=== PATIENT | male | born 1965 | race Caucasian/White ===

== ENCOUNTER → 2017-12-14 17:02 | Outpatient (CLI) | payer BC, SELFPAY ==
[2017-12-14 19:08] LABS: Thyroid Stimulating Hormone 2.52 uIU/mL (0.47-4.68)
== END ==
PROVIDERS: PCP Internal Medicine; Visit Provider Internal Medicine
DX: R53.83 Other fatigue (principal)
CPT/HCPCS: 36415; 84443

== ENCOUNTER → 2018-05-10 09:50 | Outpatient (CLI) | payer BC, SELFPAY ==
--- NOTE | 2018-05-10 | DI.US.S_ITS ---
PROCEDURE: US PERIPH VENOUS LOW EXTREM BI INDICATIONS: BILAT LEG PAIN TECHNIQUE: Real-time imaging, as well as color and pulse Doppler interrogation, were performed of the deep veins of both legs from the inguinal ligament to the popliteal fossa. COMPARISON: [facility], , PVE UNILATERAL LEFT, 09/21/2017, 15:37. FINDINGS: The deep veins are normally compressible, and free of intraluminal thrombus. Color and pulse Doppler demonstrate normal phasic intravascular flow. There is normal augmentation response to distal compression maneuver. IMPRESSION: Negative for deep venous thrombosis. Note: Concordant preliminary findings given by the oral health therapist upon the completion of the examination to medical insurance collector Samira Gayle. Dictated by: Jett Buckner M.D. on 05/10/2018 at 10:08 Approved by: Jett Buckner M.D. on 05/10/2018 at 10:09
== END ==
PROVIDERS: Family Provider Internal Medicine; PCP Internal Medicine; Visit Provider Internal Medicine
DX: M79.606 Pain in leg, unspecified (principal)
CPT/HCPCS: 93970

== ENCOUNTER → 2018-06-26 10:10 | Outpatient (CLI) | payer BC, SELFPAY ==
[2018-06-26 12:41] LABS: Thyroid Stimulating Hormone 2.48 uIU/mL (0.47-4.68)
== END ==
PROVIDERS: PCP Internal Medicine; Visit Provider Internal Medicine
DX: E03.9 Hypothyroidism, unspecified (principal); Z12.5 Encounter for screening for malignant neoplasm of prostate
CPT/HCPCS: 36415; 84153; 84443

== ENCOUNTER → 2018-11-28 09:14 | Outpatient (CLI) | payer BC, SELFPAY ==
[2018-11-28 11:53] LABS: TSH w/ Reflex to FT4 1.64 uIU/mL (0.47-4.68)
== END ==
PROVIDERS: PCP Internal Medicine; Visit Provider Internal Medicine
DX: E03.9 Hypothyroidism, unspecified (principal)
CPT/HCPCS: 36415; 84443

== ENCOUNTER → 2019-06-11 13:24 | Outpatient (ROUT) | payer BC, SELFPAY ==
[2019-06-11 14:17] LABS: BUN Creatinine Ratio 21.1 (6-22); Blood Urea Nitrogen 19 mg/dL (9-20); Calcium 10.2 mg/dL (8.4-10.2); Carbon Dioxide 29 mmol/L (22-32); Chloride 104 mmol/L (98-107); Cholesterol 204 mg/dL (140-199); Estimated Glomerular Filt Rate > 60.0 mL/min (>60); Glucose 95 mg/dL (70-100); HDL Cholesterol 53 mg/dL (40-60); HEMOLYSIS < 15 (0-50); LDL Cholesterol Calculated 122 mg/dL (<100); Potassium 4.4 mmol/L (3.4-5.1); Sodium 142 mmol/L (137-145); Triglycerides 145 mg/dL (35-150)
[2019-06-11 14:46] LABS: TSH w/ Reflex to FT4 1.46 uIU/mL (0.47-4.68)
== END ==
PROVIDERS: PCP Internal Medicine; Visit Provider Internal Medicine
DX: Z13.1 Encounter for screening for diabetes mellitus (principal); E78.5 Hyperlipidemia, unspecified; E03.9 Hypothyroidism, unspecified
CPT/HCPCS: 80048; 80061; 84443

== ENCOUNTER → 2020-04-11 14:44 | Outpatient (CLI) | payer OTHER, SELFPAY ==
[2020-04-12 14:43] LABS: COVID19 Sendout Not Detected (Not Detect)
== END ==
PROVIDERS: PCP Internal Medicine; Visit Provider Physician Assistant
DX: Z11.59 Encounter for screening for other viral diseases (principal)
CPT/HCPCS: 87635

== ENCOUNTER → 2020-06-16 17:11 | Outpatient (CLI) | payer OTHER, MEDICAID, SELFPAY ==
[2020-06-16 17:32] LABS: Hematocrit 43.3 % (41-53); Hemoglobin 14.7 g/dL (13.5-17.5); Mean Corpuscular Hemoglobin 31.1 PG (26-34); Mean Corpuscular Volume 91.3 fL (80-100); Platelet Count 210 X10^3/uL (150-400); Red Blood Cell Count 4.74 X10^6/uL (4.5-5.9); Red Cell Distribution Width 13.2 % (11.6-14.8); White Blood Cell Count 5.4 X10^3/uL (4.5-11.0)
[2020-06-16 17:37] LABS: Monotest Negative (Negative)
[2020-06-16 17:42] LABS: Alanine Aminotransferase 46 IU/L (<50); Albumin 4.7 g/dL (3.5-5.0); Albumin Globulin Ratio 1.6 (1.0-2.8); Alkaline Phosphatase 72 U/L (38-126); Aspartate Aminotransferase 39 IU/L (17-59); Bilirubin Total 0.4 mg/dL (0.2-1.3); Blood Urea Nitrogen 27 mg/dL (9-20); Calcium 9.7 mg/dL (8.4-10.2); Carbon Dioxide 28 mmol/L (22-32); Chloride 106 mmol/L (98-107); Estimated Glomerular Filt Rate > 60.0 mL/min (>60); Glucose 97 mg/dL (70-100); HEMOLYSIS < 15 (0-50); Potassium 4.3 mmol/L (3.4-5.1); Sodium 139 mmol/L (137-145); Total Protein 7.7 g/dL (6.3-8.2)
[2020-06-16 17:48] LABS: Hypersegmented Neutrophils 2+; Neutrophils Absolute Manual 3186 /uL (3000-5900); RBC Morphology Normal Morphology; Total Cells Counted 100
[2020-06-16 18:10] LABS: Free T3, Triiodothyronine Free 3.29 pg/mL (2.77-5.27); Free T4, Direct Thyroxine 1.13 ng/dL (0.78-2.19)
[2020-06-16 18:11] LABS: Vitamin D 25 Hydroxy (D3) 31.2 ng/mL (30.0-100.0)
[2020-06-16 18:12] LABS: Prostate Specific Antigen Scrn 1.35 ng/mL (0.1-4.0)
[2020-06-16 18:24] LABS: Thyroid Stimulating Hormone 1.62 uIU/mL (0.47-4.68)
[2020-06-16 18:30] LABS: Vitamin B12 291 pg/mL (239-931)
== END ==
PROVIDERS: PCP Student in an Organized Health Care Education/Training Program; Referring Provider Student in an Organized Health Care Education/Training Program; Visit Provider Student in an Organized Health Care Education/Training Program
DX: E03.9 Hypothyroidism, unspecified (principal); K21.9 Gastro-esophageal reflux disease without esophagitis; K92.1 Melena; R53.83 Other fatigue; Z12.5 Encounter for screening for malignant neoplasm of prostate
CPT/HCPCS: 36415; 80053; 82306; 82607; 84439; 84443; 84481; 85025; 86318; G0103

== ENCOUNTER → 2020-06-22 08:34 | Outpatient (CLI) | payer OTHER, MEDICAID, SELFPAY ==
[2020-06-22 08:39] LABS: RBC Urine None Seen (0-5/HPF); WBC Urine None Seen (0-5/HPF)
[2020-06-22 09:03] LABS: Occult Blood 1 Negative (Negative)
[2020-06-22 09:09] LABS: Appearance Urine UA CLEAR; Bilirubin Urine UA NEGATIVE (NEGATIVE); Color Urine UA YELLOW; Glucose Urine UA NEGATIVE (Negative); Ketones Urine UA NEGATIVE (NEGATIVE); Leukocyte Esterase Urine UA NEGATIVE (NEGATIVE); Nitrite Urine UA NEGATIVE (Negative); Occult Blood Urine UA NEGATIVE (Negative); Protein Urine UA NEGATIVE (Negative); Specific Gravity Urine UA >=1.030 (1.000-1.035); Urobilinogen Urine UA 0.2 E.U./dL (0.2)
[2020-06-22 09:20] LABS: Bacteria Urine Occasional (0-1); Calcium Oxalate Crystals Urine Many; Culture Indicated Urine Cult Not Indicated
[2020-06-24 07:09] LABS: H. Pylori Antigen Stool Negative (Negative)
== END ==
PROVIDERS: PCP Student in an Organized Health Care Education/Training Program; Referring Provider Student in an Organized Health Care Education/Training Program; Visit Provider Student in an Organized Health Care Education/Training Program
DX: E03.9 Hypothyroidism, unspecified (principal); K21.9 Gastro-esophageal reflux disease without esophagitis; K92.1 Melena; R53.83 Other fatigue
CPT/HCPCS: 81001; 82270; 87338

== ENCOUNTER → 2020-07-19 11:44 | Outpatient (CLI) | payer OTHER, MEDICAID, SELFPAY ==
[2020-07-19 14:15] LABS: Free T4, Direct Thyroxine 0.74 ng/dL (0.78-2.19)
== END ==
PROVIDERS: PCP Student in an Organized Health Care Education/Training Program; Referring Provider Student in an Organized Health Care Education/Training Program; Visit Provider Student in an Organized Health Care Education/Training Program
DX: E03.9 Hypothyroidism, unspecified (principal)
CPT/HCPCS: 36415; 84439; 84443

== ENCOUNTER 2020-07-25 15:52 | Emergency (ER) | payer OTHER, MEDICAID, SELFPAY ==
[2020-07-25 16:11] VITALS: BP 174/99; PULSE 58; RESP 20; TEMP 36.8; O2SAT 98; BMI 30.9
--- NOTE | 2020-07-25 16:14 | ED_ITS ---
HPI - Back Pain/Injury General Chief Complaint: Back Pain/Injury Stated Complaint: back/leg pain right side Time Seen by Provider: 07/25/20 16:00 Source: patient and family Mode of arrival: Ambulatory Limitations: no limitations History of Present Illness HPI Narrative: 54-year-old male nonsmoker with history of hypothyroidism presents with his in the chief complaint of severe right lower back pain that radiates into his right leg. He states that it started a few days ago when he was lifting some objects at home. It has been progressively worsening since and now he has intense pain when trying to move or walk. As stated, the pain starts in his lower back and radiates down the outside of his right leg to his knee. He denies any numbness, tingling or weakness. He denies any trouble controlling bowel or bladder. He denies any traumatic injury. He denies use of blood thinners or IV drugs. He has had no footdrop. He is otherwise well and free of complaint MD Complaint: back pain Onset (ago): day(s) Duration: constant Similar Symptoms Previously: No Location: lumbar spine Severity: moderate Quality: burning, sharp and stabbing Radiation: right leg Severity scale (1-10): 10 Relieving factors: immobilization Exacerbating factors: movement Context: while lifting Associated symptoms: denies other symptoms Treatments prior to arrival: NSAIDS Related Data Previous Rx's Medication Instructions Recorded levothyroxine 112 mcg capsule 112 mcg PO DAILY #90 cap 07/21/20 diazepam [Valium] 5 mg PO BID-QID PRN #10 tab 07/25/20 gabapentin 300 mg PO BEDTIME #20 cap 07/25/20 hydrocodone-acetaminophen 1 tab PO Q4-6H PRN #10 tab 07/25/20 ketorolac 10 mg PO Q6H PRN #14 tab 07/25/20 prednisone See Rx Instructions .ROUTE 07/25/20 .COMPLEX #30 tab Allergies Allergy/AdvReac Type Severity Reaction Status Date / Time No Known Allergies Allergy Uncoded 07/25/20 16:11 Review of Systems Constitutional Constitutional: Denies chills, Denies fatigue, Denies fever(s), Denies frequent falls, Denies lethargy and Denies weakness Eyes Eyes: Denies change in vision, Denies eye discharge, Denies irritation and Denies loss of vision ENT Ears, Nose, Mouth, and Throat: Denies change in voice, Denies dizziness, Denies neck pain, Denies sore throat and Denies throat swelling Cardiovascular Cardiovascular: Denies chest pain, Denies irregular heart rhythm, Denies lightheadedness, Denies palpitations, Denies dyspnea, Denies dyspnea on exertion and Denies orthopnea Respiratory Respiratory: Denies cough, Denies dyspnea, Denies dyspnea on exertion and Denies wheezing Gastrointestinal Gastrointestinal: Denies abdominal pain, Denies change in bowel habits, Denies diarrhea, Denies nausea and Denies vomiting Musculoskeletal Musculoskeletal: Reports abnormal gait, Reports back pain, Denies neck pain and Denies numbness Integumentary/Breasts Skin/Breast: Denies pruritus, Denies erythema, Denies rash and Denies wounds Neurologic Neurologic: Reports abnormal gait, Denies behavioral changes, Denies confusion, Denies dizziness, Denies frequent falls, Denies loss of vision, Denies numbness and Denies weakness Psychiatric Psychiatric: Denies anxiety, Denies behavioral changes, Denies confusion, Denies depression, Denies homicidal ideation and Denies suicidal ideation Endocrine Endocrine: Denies fatigue, Denies flushing and Denies palpitations Hematologic/Lymphatic Hematologic/Lymphatic: Denies easy bruising Allergic/Immunologic Allergic/Immunologic: Denies urticaria, Denies throat swelling and Denies wheezing Patient History Surgical History History of tonsillectomy Status post laparoscopic cholecystectomy (12/26/12) Family History Sister Age: 63 Bipolar 1 disorder Social History Smoking Status: Never smoker Smoking Status: Never smoker Exam Narrative Exam Narrative: GEN: AOx3 and in mild distress EYES: Pupils are equal, round, and reactive to light and accommodation. Extraoccular muscles are intact bilaterally. There is no subconjunctival hemorrhage or exudate. CHEST: Lungs are clear to auscultation bilaterally and free of wheezes, rales, or rhonchi. Heart rate is regular rhythm, there are no murmurs, clicks, rubs, or gallops. There is no chest wall tenderness. ABD: Abdomen is soft and nontender. There is no guarding or rebound. Bowel sounds are normal in all 4 quadrants. There is no mass or organomegaly. EXT: Full painless ROM of all extremities with no loss of sensation or strength. BACK: long chain quiller tender but free of any obvious external abnormalities. Patient exam notes decreased range of motion and muscle spasm, but no CVA tenderness, or vertebral point tenderness. There are no symptoms of cauda equina such as saddle anesthesia, and decreased reflexes, decreased sensation or strength. SKIN: Warm, pink, and dry. No erythema or rash Initial Vital Signs Initial Vital Signs: Vital Signs Temperature 98.2 F 07/25/20 16:11 Pulse Rate 58 L 07/25/20 16:11 Respiratory Rate 20 07/25/20 16:11 Blood Pressure 174/99 H 07/25/20 16:11 Pulse Oximetry 98 07/25/20 16:11 Course Course Course Narrative: Patient experiencing improvement after above-stated therapy goals. Extensive return precautions given, questions answered to his apparent satisfaction. Multiple etiologies of back pain considered including; Epidural abscess, cauda equina, mass occupying lesion, and other considered Orders Ordered: Discontinued Medications Hydrocodone Bitart/Acetaminophen (Hydrocodone/Acet 5/325 Prepack) 1 bottle MISC SEEINSTR ONE Stop: 07/25/20 17:30 Last Admin: 07/25/20 17:40 Dose: 1 bottle Documented by: TRIPP Diazepam (Diazepam 5 Mg Tablet) 5 mg PO NOW ONE Stop: 07/25/20 17:30 Last Admin: 07/25/20 17:40 Dose: 5 mg Documented by: TRIPP Gabapentin (Gabapentin 300 Mg Capsule) 300 mg PO NOW ONE Stop: 07/25/20 16:32 Last Admin: 07/25/20 17:04 Dose: 300 mg Documented by: TRIPP Ketorolac Tromethamine (Ketorolac 60 Mg/2 Ml Vial) 60 mg IM NOW ONE Stop: 07/25/20 16:32 Last Admin: 07/25/20 16:38 Dose: 60 mg Documented by: TRIPP Prednisone (Prednisone 20 Mg Tablet) 40 mg PO NOW ONE Stop: 07/25/20 16:32 Last Admin: 07/25/20 16:38 Dose: 40 mg Documented by: TRIPP Vital Signs Vital signs: Vital Signs - 8 hr 07/25/20 16:11 Temperature 98.2 F Pulse Rate 58 L Respiratory Rate 20 Blood Pressure 174/99 H Pulse Oximetry 98 Discharge Plan Departure Patient Disposition: Home Clinical Impression: Lumbar back pain with radiculopathy affecting right lower extremity Instructions: DI for Lumbar Radiculopathy Activity Restrictions/Additional Instructions: *You have been diagnosed with [lumbar pain with radiculopathy] *What to do: *Take medications as directed: [facility] *Follow up with your primary care provider in 2-3 days, call for an appointment. Let them know you were seen in the Emergency Department and that we ask that you be seen in follow up. Depending on how you respond to these medications they may write more prescriptions, refer you to Physical Therapy, refer you to Orthopedics, order an MRI, or any other options they deem necessary *Return to ER if you should have any new, worsening or concerning symptoms, such as [worsening pain, loss of control of bowel or bladder, weakness of your leg, fever over 101 F or other bothersome symptoms] You have been prescribed narcotic medications. While on these medications you cannot drive or operate heavy machinery. Additionally you cannot sign legal documents or perform any duties such as this. 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 Please understand that we cannot provide further refills of narcotics or controlled substances through the ED and your pain management will need to be through your Primary Care Provider Prescriptions: New prednisone 10 mg tablet See Rx Instructions .ROUTE .COMPLEX Qty: 30 RF: 0 hydrocodone-acetaminophen 5-325 mg tablet 1 tab PO Q4-6H PRN (Reason: pain) Qty: 10 RF: 0 ketorolac 10 mg tablet 10 mg PO Q6H PRN (Reason: pain) Qty: 14 RF: 0 diazepam [Valium] 5 mg tablet 5 mg PO BID-QID PRN (Reason: muscle spasm) Qty: 10 RF: 0 gabapentin 300 mg capsule 300 mg PO BEDTIME Qty: 20 RF: 0 No Action levothyroxine 112 mcg capsule 112 mcg PO DAILY Qty: 90 RF: 0 Referrals: Power Bradshaw MD [Primary Care Provider] -
[2020-07-25] MEDS: predniSONE 20 MG TABLET 40 MG PO (16:38)
[2020-07-25] MEDS: KETOROLAC 60 MG/2 ML VIAL IM (16:38)
[2020-07-25] MEDS: GABAPENTIN 300 MG CAPSULE PO (17:04)
[2020-07-25] MEDS: diazePAM 5 MG TABLET PO (17:40)
[2020-07-25] MEDS: HYDROCODONE/ACET 5/325 PREPACK 1 BOTTLE MISC (17:40)
[2020-07-25 18:15] VITALS: BP 130/82; PULSE 52; RESP 14; O2SAT 97
== END 2020-07-25 18:18 | disposition home or self-care (01) ==
PROVIDERS: Emergency Provider Emergency Medicine; PCP Student in an Organized Health Care Education/Training Program
DX: M54.16 Radiculopathy, lumbar region (principal); M79.604 Pain in right leg
CPT/HCPCS: 96372; 99281; 99283; J1885

== ENCOUNTER → 2021-02-28 08:50 | Outpatient (CLI) | payer OTHER, MEDICAID, SELFPAY ==
[2021-02-28 10:30] LABS: Free T4, Direct Thyroxine 0.95 ng/dL (0.78-2.19)
[2021-02-28 10:44] LABS: Thyroid Stimulating Hormone 2.08 uIU/mL (0.47-4.68)
== END ==
PROVIDERS: PCP Student in an Organized Health Care Education/Training Program; Referring Provider Student in an Organized Health Care Education/Training Program; Visit Provider Student in an Organized Health Care Education/Training Program
DX: E03.9 Hypothyroidism, unspecified (principal)
CPT/HCPCS: 36415; 84439; 84443

== ENCOUNTER → 2021-03-11 09:23 | Outpatient (CLI) | payer OTHER, MEDICAID, SELFPAY ==
--- NOTE | 2021-03-11 09:26 | DI.RAD.S_ITS ---
PROCEDURE: XR HAND RT 2V INDICATIONS: Re-assess right hand injury to 4th,5th digit 2mo ago TECHNIQUE: 2 views of the hand(s) acquired. COMPARISON: None. FINDINGS: Bones: No fractures or dislocations. There is what appears to be a bone island within the diaphysis of the 3rd distal phalanx. Carpal bones are normally aligned. No suspicious bony lesions. Soft tissues: No suspicious soft tissue calcifications. IMPRESSION: Incidental note is made of a bone island 3rd distal phalanx within the diaphysis. No trauma found. No subluxation identified. / Approved by: Lion Guillen M.D. on 03/11/2021 at 13:36
--- NOTE | 2021-03-11 09:26 | DI.RAD.S_ITS ---
PROCEDURE: XR HIP W PEL IF DONE LT 2V INDICATIONS: Hip pain and crepitus TECHNIQUE: AP pelvis with lateral view(s) of the left hip(s). COMPARISON: None. FINDINGS: Bones: No fractures or dislocations but there is a finding of asymmetric hip joint osteoarthritis, moderately severe on the left and moderate on the right.. Pelvic ring appears intact. No suspicious bony lesions. Soft tissues: The visualized bowel gas pattern is normal. No suspicious soft tissue calcifications. IMPRESSION: Asymmetric hip joint osteoarthritis, moderately severe on the left and moderate on the right. No acute trauma found. Dictated by: Lion Guillen M.D. on 03/11/2021 at 13:34 Approved by: Lion Guillen M.D. on 03/11/2021 at 13:35
== END ==
PROVIDERS: PCP Student in an Organized Health Care Education/Training Program; Referring Provider Student in an Organized Health Care Education/Training Program; Visit Provider Student in an Organized Health Care Education/Training Program
DX: M79.643 Pain in unspecified hand (principal); M25.552 Pain in left hip
CPT/HCPCS: 73120; 73502

== ENCOUNTER → 2021-09-19 16:22 | Outpatient (CLI) | payer OTHER, MEDICAID, SELFPAY ==
--- NOTE | 2021-09-19 16:24 | DI.RAD.S_ITS ---
PROCEDURE: XR CERVICAL SPINE 2V OR 3V INDICATIONS: Pinched nerve in neck causing radicular sx of pain/weakness TECHNIQUE: 3 view(s) of the cervical spine were acquired. COMPARISON: None. FINDINGS: Bones: No fractures or dislocations to the T1 level. The lateral masses of C1 appear intact on the odontoid view. No suspicious bony lesions. Disc height is well maintained. Soft tissues: No prevertebral soft tissue swelling. IMPRESSION: Normal C-spine. Dictated by: Dave MICHAELS Interpreted: Martin Cheatham MD on 09/19/2021 at 16:51 Transcribed by: TEA on 09/19/2021 at 16:52 Approved by: Martin Cheatham M.D. on 09/19/2021 at 17:32
== END ==
PROVIDERS: PCP Student in an Organized Health Care Education/Training Program; Referring Provider Family Medicine; Visit Provider Family Medicine
DX: M54.2 Cervicalgia (principal)
CPT/HCPCS: 72040

== ENCOUNTER → 2021-11-14 11:33 | Outpatient (CLI) | payer OTHER, MEDICAID, SELFPAY ==
--- NOTE | 2021-11-14 11:34 | DI.RAD.S_ITS ---
PROCEDURE: XR SHOULDER LT MIN 2V INDICATIONS: Left shoulder pop and pain TECHNIQUE: 3 views of the shoulder were acquired. COMPARISON: None. FINDINGS: Bones: No fractures or dislocations. No suspicious bony lesions. Visualized ribs appear intact. Apparent prior reshaping of the distal clavicle can be seen. Please correlate with known patient history. Minimal to mild degenerative changes are seen. Soft tissues: No suspicious soft tissue calcifications. The visualized lung demonstrates an unremarkable appearance. IMPRESSION: Mild degenerative changes are seen by plain film. Apparent remote reshaping of the distal left clavicle. Please correlate with known surgical history. If it would be helpful for clinical management decision making, please consider a dedicated, scheduled shoulder MRI for further evaluation (assuming that there is no contraindication). Dictated by: Jett Buckner M.D. on 11/14/2021 at 11:20 Approved by: Jett Buckner M.D. on 11/14/2021 at 11:21
== END ==
PROVIDERS: PCP Student in an Organized Health Care Education/Training Program; Referring Provider Physician Assistant; Visit Provider Physician Assistant
DX: M25.512 Pain in left shoulder (principal)
CPT/HCPCS: 73030

== ENCOUNTER → 2022-02-16 10:59 | Outpatient (CLI) | payer OTHER, MEDICAID, SELFPAY ==
--- NOTE | 2022-02-16 | DI.MRI.S_ITS ---
PROCEDURE: MR SHOULDER LT WO CON INDICATIONS: Sprain of left rotator cuff capsule TECHNIQUE: Noncontrast oblique coronal T2 fast spin echo with fat saturation, oblique sagittal T1 spin echo and T2 fast spin echo with fat saturation, axial T1 spin echo and T2 fast spin echo with fat saturation through the shoulder. COMPARISON: [facility] [place], CR, XR SHOULDER 2+ VIEWS LEFT, 02/01/2022, 11:50. FINDINGS: Image quality: Excellent. Rotator cuff: There is mild T2 signal elevation within the supraspinatus and infraspinatus tendons at the humeral insertion sites extending the musculotendinous junctions, indicating tendinopathy. Superimposed low-grade partial-thickness intrasubstance tearing of the mid supraspinatus. Infraspinatus tendon is intact. Subscapularis and teres minor tendons are intact. No rotator cuff atrophy. Bones and bursae: No bone marrow contusions or fractures. Mild acromioclavicular and moderate acromioclavicular joint degeneration. The acromion demonstrates conventional anatomy, without an os acromiale. No pathologic subacromial-subdeltoid or subcoracoid bursal fluid is present. Capsule and soft tissues: Diffuse labral undercutting is present. The long head of the biceps tendon demonstrates normal location and high-grade tearing The rotator interval appears normal, without fibrosis. The coracohumeral ligament is normal in thickness. IMPRESSION: 1. Supraspinatus and infraspinatus tendinopathy. Low-grade partial-thickness tearing of the supraspinatus. No full-thickness rotator cuff tear. 2. Diffuse glenoid labral tearing. 3. High-grade biceps tendon tearing. 4. Acromioclavicular joint osteoarthritis. Dictated by: Leah Ansari M.D. on 02/16/2022 at 15:10 Approved by: Leah Ansari M.D. on 02/16/2022 at 15:12
== END ==
PROVIDERS: PCP Student in an Organized Health Care Education/Training Program; Referring Provider Physician Assistant Medical; Visit Provider Physician Assistant Medical
DX: S43.422A Sprain of left rotator cuff capsule, initial encounter (principal); S43.492A Other sprain of left shoulder joint, initial encounter; S46.112A Strain of muscle, fascia and tendon of long head of biceps, left arm, initial encounter; M19.012 Primary osteoarthritis, left shoulder; X58.XXXA Exposure to other specified factors, initial encounter
CPT/HCPCS: 73221

== ENCOUNTER 2022-04-28 14:41 | Emergency (ER) | payer OTHER, MEDICAID, SELFPAY ==
[2022-04-28 14:57] VITALS: BP 130/75; PULSE 85; RESP 16; TEMP 36.8; O2SAT 100; BMI 25.9
--- NOTE | 2022-04-28 15:01 | DI.RAD.S_ITS ---
PROCEDURE: XR TIBIA FUBULA RT 2V INDICATIONS: pain, rotohammer accident TECHNIQUE: 2 views of the tibia and fibula were acquired. COMPARISON: None. FINDINGS: Bones: No fractures demonstrated. No dislocations. No suspicious bony lesions. Soft tissues: No suspicious soft tissue calcifications or masses. IMPRESSION: No acute osseous abnormality. Dictated by: Juarez Judd M.D. on 04/28/2022 at 16:08 Approved by: Juarez Judd M.D. on 04/28/2022 at 16:10
--- NOTE | 2022-04-28 17:47 | PC.NURSE ---
Provider attempted to see patient but patient was not present in the room. Staff did not witness patient leaving department and patient did not alert this RN that he was going to leave.
--- NOTE | 2022-04-28 19:57 | ED.LOWEXIN ---
HPI - Extremity Injury (Lower) <Terrance Khanna PA-C - Last Filed: 04/30/22 19:36> General Chief Complaint: Extremity Injury, Lower Stated Complaint: Leg injury- hit with power tool Time Seen by Provider: 04/28/22 15:53 Source: patient Mode of arrival: Wheelchair Related Data Previous Rx's Medication Instructions Recorded levothyroxine 112 mcg tablet 112 mcg PO DAILY #90 tabs 08/29/21 sertraline 25 mg tablet 25 mg PO DAILY #90 tabs 03/07/22 Allergies Allergy/AdvReac Type Severity Reaction Status Date / Time No Known Drug Allergies Allergy Verified 12/01/21 10:20 Patient History <Terrance Khanna PA-C - Last Filed: 04/30/22 19:36> Surgical History History of tonsillectomy Status post laparoscopic cholecystectomy (12/26/12) Family History Sister Age: 64 Bipolar 1 disorder Social History Smoking Status: Never smoker Smoking Status: Never smoker alcohol intake frequency: a few times a week Substance Use Type: does not use Exam <Terrance Khanna PA-C - Last Filed: 04/30/22 19:36> Initial Vital Signs Initial Vital Signs: Vital Signs Temperature 98.2 F 04/28/22 14:57 Pulse Rate 85 04/28/22 14:57 Respiratory Rate 16 04/28/22 14:57 Blood Pressure 130/75 04/28/22 14:57 Pulse Oximetry 100 04/28/22 14:57 Oxygen Delivery Method 04/28/22 14:57 <Reji Jaimes DO - Last Filed: 05/01/22 07:09> Initial Vital Signs Initial Vital Signs: Vital Signs Temperature 98.2 F 04/28/22 14:57 Pulse Rate 85 04/28/22 14:57 Respiratory Rate 16 04/28/22 14:57 Blood Pressure 130/75 04/28/22 14:57 Pulse Oximetry 100 04/28/22 14:57 Oxygen Delivery Method 04/28/22 14:57 Course <Terrance Khanna PA-C - Last Filed: 04/30/22 19:36> Orders Ordered: ED Orders 04/28/22 15:01 XR tibia fibula RT 2V Stat Vital Signs Vital signs: Vital Signs - 8 hr 04/28/22 14:57 Temperature 98.2 F Pulse Rate 85 Respiratory Rate 16 Blood Pressure 130/75 Pulse Oximetry 100 Oxygen Delivery Method Room Air <Reji Jaimes DO - Last Filed: 05/01/22 07:09> Orders Ordered: ED Orders 04/28/22 15:01 XR tibia fibula RT 2V Stat Vital Signs Vital signs: Vital Signs - 8 hr 04/28/22 14:57 Temperature 98.2 F Pulse Rate 85 Respiratory Rate 16 Blood Pressure 130/75 Pulse Oximetry 100 Oxygen Delivery Method Room Air Discharge Plan Departure Patient Disposition: Left Without Being Seen Clinical Impression: Patient left without being seen <DO Brian Hinojosa Last Filed: 05/01/22 07:09> Cosign ED Attending Cosignature Attestation: Dr jaimes: I had Zero clinical interaction with this patient
== END 2022-04-28 17:51 | disposition left against medical advice (07) ==
PROVIDERS: Emergency Provider Physician Assistant; Family Provider Student in an Organized Health Care Education/Training Program; PCP Student in an Organized Health Care Education/Training Program
DX: S89.91XA Unspecified injury of right lower leg, initial encounter (principal); W22.8XXA Striking against or struck by other objects, initial encounter
CPT/HCPCS: 73590; 99283

== ENCOUNTER → 2023-03-14 09:22 | Outpatient (CLI) | payer OTHER, MEDICAID, SELFPAY ==
[2023-03-14 10:31] LABS: Add Manual Diff / Slide Review NO; Basophils Absolute Auto 0 /uL (0-100); Basophils Percent Auto 0.3 % (0-2); Eosinophils Absolute Auto 100 /uL (0-450); Eosinophils Percent Auto 1.5 % (2-4); Hematocrit 42.4 % (41-53); Hemoglobin 14.5 g/dL (13.5-17.5); Lymphocytes Absolute Auto 1400 /uL (1100-4500); Lymphocytes Percent Auto 28.8 % (25-40); Mean Corpuscular HGB Conc 34.2 % (30-36); Mean Corpuscular Volume 90.6 fL (80-100); Monocytes Absolute Auto 300 /uL (0-900); Monocytes Percent Auto 5.8 % (3-14); Neutrophils Absolute Auto 3000 /uL (1500-7000); Neutrophils Percent Auto 63.6 % (50-75); Platelet Count 191 X10^3/uL (150-400); Red Blood Cell Count 4.68 X10^6/uL (4.5-5.9); White Blood Cell Count 4.8 X10^3/uL (4.5-11.0)
[2023-03-14 10:53] LABS: Appearance Urine UA CLEAR; Bilirubin Urine UA NEGATIVE (NEGATIVE); Color Urine UA YELLOW; Glucose Urine UA NEGATIVE (Negative); Ketones Urine UA NEGATIVE (NEGATIVE); Leukocyte Esterase Urine UA NEGATIVE (NEGATIVE); Nitrite Urine UA NEGATIVE (Negative); Occult Blood Urine UA NEGATIVE (Negative); Protein Urine UA NEGATIVE (Negative); Specific Gravity Urine UA >=1.030 (1.000-1.035); Urobilinogen Urine UA 0.2 E.U./dL (0.2)
[2023-03-14 11:10] LABS: Alanine Aminotransferase 29 IU/L (<50); Albumin 4.5 g/dL (3.5-5.0); Albumin Globulin Ratio 1.6 (1.0-2.8); Alkaline Phosphatase 52 U/L (38-126); Aspartate Aminotransferase 31 IU/L (17-59); BUN Creatinine Ratio 28.2 (6-22); Bilirubin Total 0.6 mg/dL (0.2-1.3); Blood Urea Nitrogen 24 mg/dL (9-20); Calcium 9.5 mg/dL (8.4-10.2); Carbon Dioxide 25 mmol/L (22-32); Chloride 107 mmol/L (98-107); Cholesterol 269 mg/dL (140-199); Estimated Glomerular Filt Rate > 60 mL/min (>60); Globulin 2.9 g/dL (1.7-4.1); Glucose 106 mg/dL (70-100); HDL Cholesterol 59 mg/dL (40-60); HEMOLYSIS < 15 (0-50); Hemoglobin A1C% w Est Avg Glu 5.2 % (4.0-6.0); LDL Cholesterol Calculated 175 mg/dL (<100); Sodium 139 mmol/L (137-145); Total Protein 7.4 g/dL (6.3-8.2); Triglycerides 173 mg/dL (35-150)
[2023-03-14 11:36] LABS: TSH w/ Reflex to FT4 3.38 uIU/mL (0.47-4.68)
[2023-03-14 11:37] LABS: Prostate Specific Antigen Scrn 1.15 ng/mL (0.1-4.0)
[2023-03-14 11:41] LABS: Bacteria Urine None Seen; Culture Indicated Urine Cult Not Indicated; RBC Urine None Seen (0-5/HPF); Squamous Epithelial Cell Urine None Seen (0-5/HPF); WBC Urine 0-1/HPF (0-5/HPF)
== END ==
PROVIDERS: Family Provider Student in an Organized Health Care Education/Training Program; PCP Student in an Organized Health Care Education/Training Program; Referring Provider Pediatrics; Visit Provider Pediatrics
DX: E03.9 Hypothyroidism, unspecified (principal); G89.29 Other chronic pain; K21.9 Gastro-esophageal reflux disease without esophagitis; M25.552 Pain in left hip; R35.89 Other polyuria; R63.2 Polyphagia; Z12.5 Encounter for screening for malignant neoplasm of prostate
CPT/HCPCS: 36415; 80053; 80061; 81001; 83036; 84443; 85025; G0103

== ENCOUNTER → 2023-06-26 09:41 | Outpatient (CLI) | payer OTHER, MEDICAID, SELFPAY ==
[2023-06-26 10:44] LABS: Add Manual Diff / Slide Review NO; Basophils Absolute Auto 0 /uL (0-100); Basophils Percent Auto 0.5 % (0-2); Eosinophils Absolute Auto 100 /uL (0-450); Eosinophils Percent Auto 1.7 % (2-4); Hematocrit 40.5 % (41-53); Hemoglobin 13.9 g/dL (13.5-17.5); Lymphocytes Absolute Auto 1300 /uL (1100-4500); Lymphocytes Percent Auto 27.6 % (25-40); Mean Corpuscular HGB Conc 34.4 % (30-36); Mean Corpuscular Hemoglobin 30.5 PG (26-34); Mean Corpuscular Volume 88.5 fL (80-100); Monocytes Absolute Auto 300 /uL (0-900); Monocytes Percent Auto 6.6 % (3-14); Neutrophils Absolute Auto 3000 /uL (1500-7000); Neutrophils Percent Auto 63.6 % (50-75); Platelet Count 206 X10^3/uL (150-400); Red Blood Cell Count 4.58 X10^6/uL (4.5-5.9); Red Cell Distribution Width 13.6 % (11.6-14.8); White Blood Cell Count 4.7 X10^3/uL (4.5-11.0)
[2023-06-26 11:15] LABS: Alanine Aminotransferase 34 IU/L (<50); Albumin 4.4 g/dL (3.5-5.0); Albumin Globulin Ratio 1.5 (1.0-2.8); Alkaline Phosphatase 64 U/L (38-126); Aspartate Aminotransferase 35 IU/L (17-59); BUN Creatinine Ratio 31.8 (6-22); Bilirubin Total 0.7 mg/dL (0.2-1.3); Blood Urea Nitrogen 28 mg/dL (9-20); Calcium 9.6 mg/dL (8.4-10.2); Carbon Dioxide 26 mmol/L (22-32); Chloride 106 mmol/L (98-107); Estimated Glomerular Filt Rate > 60 mL/min (>60); Globulin 2.9 g/dL (1.7-4.1); Glucose 95 mg/dL (70-100); HEMOLYSIS < 15 (0-50); Hemoglobin A1C% w Est Avg Glu 5.7 % (4.0-6.0); Potassium 4.1 mmol/L (3.4-5.1); Sodium 138 mmol/L (137-145); Total Protein 7.3 g/dL (6.3-8.2)
[2023-06-26 11:24] LABS: Vitamin D 25 Hydroxy (D3) 33.3 ng/mL (30.0-100.0)
[2023-06-26 11:33] LABS: Prealbumin 31.7 mg/dL (17.6-36.0)
== END ==
PROVIDERS: Family Provider Student in an Organized Health Care Education/Training Program; PCP Family Medicine; Referring Provider Family Medicine; Visit Provider Family Medicine
DX: Z01.818 Encounter for other preprocedural examination (principal); E03.9 Hypothyroidism, unspecified; E78.5 Hyperlipidemia, unspecified
CPT/HCPCS: 36415; 80053; 82306; 83036; 84134; 85025

== ENCOUNTER 2023-08-31 06:09 | Day surgery (SDC) | payer OTHER, MEDICAID, SELFPAY ==
[2023-08-09 13:41] VITALS: BMI 27.7
[2023-08-31] VITALS (13 sets, daily range): BP systolic 93–136; BP diastolic 55–89; PULSE 50–68; RESP 16–18; TEMP 35.9–36.8; O2SAT 93–98; BMI 27.7
--- NOTE | 2023-08-31 | DI.RAD.S_ITS ---
PROCEDURE: XR HIP W PEL IF DONE LT 2V INDICATIONS: LT TOTAL HIP TECHNIQUE: AP pelvis and lateral view of the hip acquired. COMPARISON: [facility], CR, XR HIP W PEL IF DONE LT 2V, 03/11/2021, 10:12. [facility], CR, XR HIP W PEL IF DONE LT 2V, 08/31/2023, 9:09. FINDINGS: Bones: Patient is status post left hip arthroplasty, with hardware components in expected positions. The hip joint appears congruent. The visualized bony structures appear intact. Soft tissues: Overlying postoperative changes are noted. No suspicious soft tissue densities. Left inguinal surgical clips. IMPRESSION: 1. Expected immediate postoperative appearance of left hip arthroplasty. Dictated by: Dave Paris RR Interpreted: Tanner Franklin MD on 08/31/2023 at 11:07 Transcribed by: CHALINO on 08/31/2023 at 11:07 Approved by: Tanner Franklin M.D. on 08/31/2023 at 13:54
--- NOTE | 2023-08-31 06:29 | DI.RAD.S_ITS ---
PROCEDURE: XR HIP W PEL IF DONE LT 2V INDICATIONS: ALEJANDRA TECHNIQUE: 2 view(s) of the hip acquired. COMPARISON: [facility], ALE, XR HIP W PEL IF DONE LT 2V, 03/11/2021, 10:12. [facility], ALE, XR HIP W PEL IF DONE LT 2V, 08/31/2023, 10:37. FINDINGS: Intraoperative left hip arthroplasty, with hardware components in expected positions. The hip joint appears congruent. The visualized bony structures appear intact. Overlying postoperative changes are noted. No suspicious soft tissue densities. IMPRESSION: Intraoperative left hip arthroplasty. Dictated by: Jazmyne Payton M.D. on 08/31/2023 at 11:01 Approved by: Jazmyne Payton M.D. on 08/31/2023 at 11:01
[2023-08-31] MEDS: MELOXICAM 7.5 MG TABLET PO (07:16)
[2023-08-31] MEDS: ACETAMINOPHEN 325 MG TABLET 975 MG PO (07:16)
[2023-08-31] MEDS: LACTATED RINGERS 1,000 ML 42 ML IV ×2 (07:24→10:09)
--- NOTE | 2023-08-31 07:55 | PM.PREOP ---
Pre-operative Note Interval Note History & Physical reviewed/Exam performed by Physician: Yes Changes to H&P: No
[2023-08-31 07:57] LABS: Add Manual Diff / Slide Review NO; Basophils Absolute Auto 0 /uL (0-100); Basophils Percent Auto 0.4 % (0-2); Eosinophils Absolute Auto 100 /uL (0-450); Eosinophils Percent Auto 1.6 % (2-4); Hematocrit 40.6 % (41-53); Hemoglobin 13.7 g/dL (13.5-17.5); Lymphocytes Absolute Auto 1400 /uL (1100-4500); Lymphocytes Percent Auto 31.5 % (25-40); Mean Corpuscular HGB Conc 33.8 % (30-36); Mean Corpuscular Hemoglobin 30.8 PG (26-34); Monocytes Absolute Auto 300 /uL (0-900); Monocytes Percent Auto 7.4 % (3-14); Neutrophils Absolute Auto 2600 /uL (1500-7000); Neutrophils Percent Auto 59.1 % (50-75); Platelet Count 179 X10^3/uL (150-400); Red Blood Cell Count 4.46 X10^6/uL (4.5-5.9); White Blood Cell Count 4.3 X10^3/uL (4.5-11.0)
[2023-08-31] MEDS: CEFAZOLIN 2 GM/100 ML PREMIX 100 ML IV ×3 (08:20→23:48)
[2023-08-31] MEDS: TRANEXAMIC ACID 1,000 MG VIAL 1000 MG INJ ×2 (08:30→09:45)
--- NOTE | 2023-08-31 08:39 | SUR.OPER ---
Supine on padded [place] table with bilateral legs secured in padded positioning boots and suspended in positioning spars, operative leg in traction per surgeon. Head on one pillow. Arms secured on padded armboard <90 degrees abduction. Padded perineal post in place per surgeon.
[2023-08-31] MEDS: ROPIVACAINE/EPI/CLONIDINE/KET 50 ML SYRINGE INJ (08:42)
--- NOTE | 2023-08-31 10:28 | P.OP_ITS ---
Operative Date/Time/Diagnoses Date of procedure: 08/31/23 Pre-op diagnosis: Left hip arthritis Post-op diagnosis: same Procedure & Clinicians Procedure: Left total hip arthroplasty (63519) Same procedure as scheduled: Yes Surgeon: Hunter Schwartz Garment Sorter: Lisbeth High Anesthesia Type: General, Spinal, Peripheral nerve block and Local Operative Notes Estimated Blood Loss (mL): 250 Procedure in detail: Implants: Depuy Total Hip Arthroplasty: * Depuy [place] Gription size 60 cup? * Depuy Actis femoral stem size 11 standard offset? * 36 mm +1.5 ceramic femoral head? Procedure Summary: 57-year-old male who was quite muscular. Robust pinch fit achieved with cup to such a degree that it was difficult to manipulate it even when desired. Therefore did not place any screws. Conjoined tendon release required to adequately visualize femur. Preoperative templating had indicated a size 8 stem however I was able to broach all the way up to a size 11. Good stability with trialing. Procedure in Detail: This patient was seen preoperatively and evaluated for hip pain which was refractory to numerous nonoperative treatment modalities. Their hip pain correlated with radiographic changes demonstrating significant degeneration in the hip joint. The risks and benefits of continued nonoperative management versus operative management were discussed at length and all of the patient?s questions were answered. Additional educational materials providing further details beyond our discussion in clinic were provided via a publicly available patient education video which included the incidence of medical complications associated with total hip arthroplasty, reasons for revision following total hip arthroplasty, and patient satisfaction rates following total hip arthroplasty. That video can be accessed at [email or web address] . With this understanding of the risks inherent to the procedure, the patient elected to move forward with operative management. Following preoperative optimization, the patient was scheduled for surgery. The patient was met in the preoperative holding area the day of the procedure and all questions were answered. The patient?s nares were swabbed with betadine in order to decolonize them from MRSA. Informed consent was signed and the operative limb was marked with indelible ink.? The patient was brought back to the operating room where anesthesia was induced. The patient was transferred to the Herington table and all bony prominences were padded. The operative site was prepped and draped in the usual sterile fashion. Prior to incision, tranexamic acid and cefazolin were administered. Operative templating images were displayed demonstrating the anticipated implant sizes and correct operative extremity. A timeout procedure was performed verifying the patient?s identity, medical comorbidities, allergies, relevant medications, anesthesia type and the surgical plan. All present were in agreement. The assistance of a physician press operator assistant was required for positioning, room setup, soft tissue retraction and wound closure. Without this assistance, the procedure would have been significantly more challenging and time consuming.?? A direct anterior approach to the hip was utilized. This was performed with a longitudinal incision through a Heuter interval. The incision was planned 2 cm distal and 2 cm lateral to the ASIS extending towards the lateral patella, in line with the muscle body of the TFL. Following incision, the subcutaneous tissue was dissected while taking care to avoid injury to the lateral femoral cutaneous nerve. The fascia overlying the TFL was identified by dissecting off the overlying fat and identifying perforating vessels to the TFL. The TFL fascia was incised and dissected away from the medial border of the TFL. A cobra retractor was placed over the superior femoral neck between the abductors and the hip capsule and used to reflect the TFL laterally. A Saunders self-retainer was then placed in the distal aspect of the wound between the TFL and the rectus femoris. This was tensioned to open up the direct anterior interval and the lateral circumflex vessels were identified and coagulated using electrocautery. The floor of the TFL fascia was incised, exposing the pericapsular fat overlying the hip capsule. A second cobra retractor was placed on the inferior femoral neck. A double-bent soft tissue retractor was placed on the anterior wall of the acetabulum and used to tension the reflected head of rectus femoris, which was then released in order to limit soft tissue tension. A capsulotomy was made in the midline of the anterior hip capsule in line with the femoral neck ending at the vastus tubercle. The double-bent retractor was removed in order to limit the amount of time that a soft tissue retractor remained on the anterior wall and protect the femoral nerve. Tag stitches were placed in the superior and inferior leaflets of the hip capsule. An Lukasz soft tissue retractor was introduced over the tag stitches and tensioned in the interval between the rectus femoris and the TFL in order to retract and protect those muscles. The cobra retractors were replaced intracapsularly, with one over the superior neck in the pocket created by the base of the greater trochanter and the other on the femoral head. The capsulotomy was extended laterally to the base of the greater trochanter and medially to the lesser trochanter. This required externally rotating the hip. Once the lesser trochanter had been identified, a neck cut was planned according to measurements from preoperative templating. A ruler was cut at the length measured between the superior aspect of the lesser trochanter and the collar of the prosthesis. This line was extended towards the inferior aspect of the lateral cobra retractor to plan a cut which would leave minimal residual femoral neck laterally. The neck was cut at 60 degrees of external rotation along that line. A second cut was performed to remove a large napkin ring and facilitate head extraction. The napkin ring cut and femoral head were removed.?? A broad anterior wall retractor was placed between the labrum and the anterior capsule so that the anterior capsule would prevent capturing and pinching the femoral nerve anteriorly. An additional retractor was placed on the posterior wall. External rotation and traction were applied through the Herington table so that the cut surface of the femoral neck would not restrict access to the acetabulum. The labrum was excised sharply and the pulvinar was excised with electrocautery to limit bleeding from branches of the obturator artery. Acetabular reamers were selected based on preoperative templating and measurements of the excised femoral head. These were introduced into the acetabulum. Fluoroscopy was utilized to replicate a standing AP pelvis radiograph by centering over the pelvis, rotating until there was appropriate symmetry between the obturator foramen, and introducing caudal tilt to match the position of the pubic symphysis relative to the sacrococcygeal junction according to the patient?s anatomy. Fluoroscopy was utilized to ensure appropriate reaming depth. Once satisfied with the reaming depth corresponding to the preoperative template and the pinch fit between the columns, an appropriate sized acetabular cup was selected which would provide 1 mm of press-fit. This cup was introduced and manipulated until appropriate abduction and anteversion angles were obtained with careful attention to appropriate abduction and anteversion angles as evaluated by the position of the cup relative to the anterior and posterior ahumada of the acetabulum and the AP fluoroscopy which recreated the patient?s standing radiograph. The cup was impacted into place. Peripheral osteophytes were removed. The acetabular liner was then placed with care to ensure locking of the locking mechanism.? Attention was then turned to the femur. All retractors were removed, traction was released, a retractor was placed in the interval between the hip capsule and the gluteus minimus, and the hip was externally rotated to 90 degrees. Traction was applied through the Herington table to tension the lateral capsule and this was released using electrocautery. Traction was released and a Herington hook was placed posteriorly around the proximal femur at the level of the vastus ridge. The table height was lowered in order to restrict the tension on the anterior structures during hip hyperextension to limit the risk of femoral nerve palsy. With traction off and the hip at 90 degrees of external rotation, the hip was hyperextended and adducted while manually elevating the femur away from the acetabulum with the Herington hook to ensure it would not be caught behind the greater trochanter. An asymmetric retractor was placed over the calcar and a broad double-pronged retractor was placed over the greater trochanter. The tag s titch capturing the lateral leaflet of the capsule was moved to the medial side, leaving the conjoined and piriformis tendons isolated in the face of the greater trochanter. The hip was externally rotated and elevated. A release of the conjoined tendon was necessary in order to obtain adequate exposure for broaching. The canal was opened with an opening broach and a rasp was used to remove cancellous bone. A rongeur was used to remove the residual lateral bone at the base of the greater trochanter to avoid placing the stem in varus. The femur was then broached to the appropriate sized stem yielding good rotational fit and fill of the canal as well as appropriate version of the stem trial. Neck and head trials were placed, all retractors were removed and the hip was returned to neutral abduction and extension. I then reduced the hip. An AP pelvis fluoroscopic image matching the preoperative standing radiograph was obtained with both lesser trochanters visible and both hips in 40 degrees of external rotation. This demonstrated appropriate leg length and offset. An AP hip fluoroscopic image was obtained with the hip in neutral rotation which demonstrated good canal fill with the size 11 broach. Hip stability was evaluated with 90 degrees of external rotation and a 45 degree drop test which demonstrated good stability. The hip was dislocated and I returned to the broaching position. The definitive stem was placed and the trunnion was cleaned and dried. I placed a ceramic head onto the trunnion and impacted it into place on the Diaz taper.?? All retractors were removed and the hip was reduced. A dilute mixture of betadine and peroxide was used to bathe the soft tissues during final fluoroscopic assessment. Appropriate component positioning was confirmed on an AP pelvis radiograph with the operative and nonoperative legs in 40 degrees of external rotation, evaluating leg length and offset. Appropriate stem fill was evaluated on an AP hip radiograph with the operative leg in neutral rotation. No fractures were identified on these radiographs. Stability was satisfactory with a 90 degree external rotation test as well as a 45 degree drop test. The hip was copiously irrigated with pulse lavage. The capsule was closed with absorbable interrupted suture. The TFL fascia was closed with barbed suture while carefully protecting the lateral femoral cutaneous nerve from entrapment. A mixture of Ropivacaine, Epinephrine, Clonidine and Toradol was infiltrated throughout the soft tissues. The skin was closed with 2-0 and 3-0 sutures. Surgical glue was applied and a soft dressing was placed.??The sponge, instrument and needle counts were reported as being correct at the end of the case.??No obvious complications occurred. The patient was transferred from the Herington table back to a stretcher. The patient emerged from anesthesia without difficulty and was taken to the PACU in a stable condition.? Plan for aftercare: * Anterior hip precautions * Weightbearing as tolerated * Mobilization as soon as the patient has recovered from anesthesia. If physical therapists are unavailable at the time the patient is ready to ambulate, then nursing staff should help patient ambulate * Aspirin 81 twice per day for DVT prophylaxis. Patient does have a history of a provoked DVT in the past however we will still use aspirin * Multimodal pain regimen with no IV opioids ordered * Anticipate discharge home today * Follow up at [facility] in 2 weeks * Detailed postoperative instructions available at [email or web address]
[2023-08-31] MEDS: OXYCODONE IR 5 MG TABLET PO ×4 (10:45→19:39)
[2023-08-31] MEDS: LACTATED RINGERS 1,000 ML 100 ML IV ×2 (11:35→18:06)
[2023-08-31] MEDS: ACETAMINOPHEN 325 MG TABLET 650 MG PO ×3 (11:35→23:13)
[2023-08-31] MEDS: TRAMADOL 50 MG TABLET PO ×2 (11:35→14:14)
--- NOTE | 2023-08-31 13:45 | OT.IP.EVAL ---
Current Diagnoses Unilateral primary osteoarthritis, left hip (08/31/23) Surgery Performed Operation Date: 08/31/23 07:45 Actual Procedures p Total Hip Arthroplasty/Anterior Approach(Left) - Hunter Schwartz MD Past Medical History (Last Updated 08/09/23 @ 14:11 by Mariaelena Greer RN) Chronic left hip pain Hyperlipidemia Irritability Left leg DVT (2018) Osteoarthritis of left hip Other polyuria Polyphagia Surgical History (Last Updated 08/09/23 @ 14:07 by Mariaelena Greer RN) History of tonsillectomy Hx of colonoscopy Hx of melanoma excision (2018) Status post laparoscopic cholecystectomy (12/26/12) Occupational Therapy Inpatient Evaluation/Re-Eval M1 PT/OT-IP Prior Functional Status Start: 08/31/23 14:59 Freq: NEEDED Status: Active Protocol: Document 08/31/23 13:45 [facility] (Rec: 08/31/23 15:15 [facility] [id number]) Medical Review Prior Functional Status Communication Independent Mobility and Gait Pt states had pain when walking but did not use a device. Activities of Daily Living and IADL's Pt states has difficulty with LB dressing needs, and pain during IADL needs. Prior Functional Level (Other details) Pt states his to assist him at home. Social History Household Members children Living Arrangements House Number of Floors (Floors) Two Floors Number of Stairs To Enter/Railing? 1 step to get into the house. Home Environment High Toilet,Walk in Shower Home Equipment Straight Cane,Shower Seat without Backrest,Hand Held Shower,Grab Bars Near Toilet, Grab Bars In Shower Additional Social History Comment Pt states has a walker but does not know which kind. M2 OT-IP Current Condition Start: 08/31/23 14:59 Freq: Status: Active Protocol: Document 08/31/23 13:45 [facility] (Rec: 08/31/23 15:15 [facility] [id number]) Occupational Therapy Current Condition Current Condition Evaluation Date 08/31/23 Treatment Diagnosis S/P L ALEJANDRA anterior approach Diagnosis Onset Date 08/31/23 M3 OT- IP Subjective and Pain Start: 08/31/23 14:59 Freq: Status: Active Protocol: Document 08/31/23 13:45 [facility] (Rec: 08/31/23 15:15 [facility] [id number]) OT- Subjective Occupational Therapy Visit Type Type Initial Evaluation Visit Start Time 13:45 Visit Stop Time 14:08 Occupational Therapy Visit Comments Patient Comments Pt states is too much pain but agreed to talk to OT for OT eval. Able to notify pt's nurse of request of wanting pain meds to help knock him out to sleep. Patient/Caregiver Goals To go home. OT Pain Assessment Pain When Pain Assessed At Rest Pain Present Pain Present Pain Reported Location Left Hip Intensity 8 Scale Used Numeric (0 - 10) M4 OT- IP ADL's Start: 08/31/23 14:59 Freq: Status: Active Protocol: Document 08/31/23 13:45 [facility] (Rec: 08/31/23 15:15 [facility] [id number]) OT [id number] Comments OT Self-Feeding Comments Not at meal time. No issues anticipated. OT ADL-Grooming Comments OT Grooming Comments Not performed, no issues anticipated. OT ADL-Oral Care Comments Oral Care Comments Not performed, no issues anticipated. OT ADL-Dressing Comments OT Dressing Comments Educated best to dress his LLE first and take out last. Also showed pt LB dressing equipment if needed. Educated on his anterior hip precautions of not externally rotating/crossing his LLE over in order to phil/doff his socks/shoes. Issued pt the anterior hip folder. OT ADL-Toileting Comments OT Toileting Comments Spoke on use of urinal if needed or to have his assist him to get to and form the bathroom pending how pt moves. OT ADL-Bathing Comments OT Bathing Comments Pt has a shower stool and HHSP at home. Spoke of care for the bandage for showering needs and best to cover it. M5 OT- IP IADL's Start: 08/31/23 14:59 Freq: Status: Active Protocol: Document 08/31/23 13:45 [facility] (Rec: 08/31/23 15:15 [facility] [id number]) OT-Instrumental Activities of Daily Living Deficits IADL Deficits Identified No Deficits Home Safety Awareness Awareness of Need for Assistance at Home Good Awareness Ability to Problem Solve Emergency Able to Problem Solve Situations Home Safety Comments Pt states his to assist for his needs at home. Meal Preparation Meal Preparation Caregiver Provides Assist Bellman Captain Bellman Captain Caregiver Provides Assist M6 OT- IP Functional Cognition Start: 08/31/23 14:59 Freq: Status: Active Protocol: Document 08/31/23 13:45 [facility] (Rec: 08/31/23 15:15 [facility] [id number]) Cognitive Factors Limiting Selfcare Function Cognitive Ability Level of Alertness Alert Patient Orientation Name,Age,Birthday,Month,Date, Year,Day of Week,Place, Situation Attention Span Ability Capable of Focused Attention, Capable of Sustained Attention Ability to Follow Commands Able to Follow One Step Commands Cognitive Comments Cognitive Assessment Comments Pt a little groggy from surgery and not aware of any of his anterior hip precautions and able to go over for his ADL needs. Pt not wanting to get up at this time and insistent that he needs medications to help knock him out to sleep as is too much pain. Nursing notified. Educated pt on the importance on getting up. OT- Vision and Hearing OT- Hearing Assessment OT- Hearing Assessment WFL OT- Vision Assessment Visual Acuity Glasses For Reading Visual Attentiveness WFL Occular Pursuits WFL M7 OT- IP Mobility and Balance Start: 08/31/23 14:59 Freq: Status: Active Protocol: Document 08/31/23 13:45 [facility] (Rec: 08/31/23 15:15 [facility] [id number]) OT-Transfer Assessment Comments Mobility Comments Pt not wanting to get up. M8 OT- IP Objective Assessments Start: 08/31/23 14:59 Freq: Status: Active Protocol: Document 08/31/23 13:45 [facility] (Rec: 08/31/23 15:15 [facility] [id number]) OT Gross Range of Motion Upper Extremity Range of Motion ROM Impairments grossly WFL , pt had old right rotator cuff injury. M9 OT- IP Assessment and Plan Start: 08/31/23 14:59 Freq: Status: Active Protocol: Document 08/31/23 13:45 [facility] (Rec: 08/31/23 15:15 [facility] [id number]) OT Summary Assessment and Plan Potential Rehabilitation Potential Good Analytic Complexity at Evaluation Low Summary OT Impairments Pain,Strength,Balance, Functional Mobility,Dressing, Toileting,Bathing,Toilet Transfers,Shower Transfers Progress Towards Goals Slow Progress due to Pain Assessment Summary Pt low complexity and at this time not wanting to get out of bed due to in too much pain, nursing notified. Able to give and go over folder for anterior precautions and suggestion for safety with ADL needs. Pt to go home with his when medically stable and have outpt PT. Goals Dressing Goal Independent Toileting Goal Independent Bathing Goal Independent Toilet Transfer Goal Independent Shower Transfer Goal Independent Days to Meet Goals 5 Frequency of Treatment Frequency Of Treatment Once a Day Treatment Plan OT Treatment Plan ADL Training,Functional Mobility,Patient/Family Education,Discharge Planning Discharge Recommendations OT Discharge Recommendations Home with Assistance Transportation Needs at Discharge Private Vehicle
--- NOTE | 2023-08-31 14:19 | PC.NURSE ---
Patient arrived from PACU to room 202 at 11:15 this a.m. A&OX4, VSS,afebrile on RA. He reports pain to L hip elevated and upon reassessment of PRN pain medications and scheduled pain medications patient continues to complain of discomfort at 8-9/10. Patient states I just need a break from the pain. Ice bag applied to hip. +CMS to LLE. Aquacel to L hip is c/d/i. at bedside supportive, concerned for patient asking to reach surgeon /corporate relations manager PA for additional pain medications. VM left for PA and surgeon. Per orders additional 5 mg oxycodone administered without effect. patient is unable to participate with OT this afternoon due to discomfort. Called on-call PA MARY spoke with HERMANN Payton and administered 50 mg tramadol. Continuous monitoring.
--- NOTE | 2023-08-31 15:00 | PT.IIE ---
Current Diagnoses Unilateral primary osteoarthritis, left hip (08/31/23) Surgery Performed Operation Date: 08/31/23 07:45 Actual Procedures p Total Hip Arthroplasty/Anterior Approach(Left) - Hunter Schwartz MD Surgical History (Last Updated 08/09/23 @ 14:07 by Mariaelena Greer, RN) History of tonsillectomy Hx of colonoscopy Hx of melanoma excision (2018) Status post laparoscopic cholecystectomy (12/26/12) Medical History (Last Updated 08/09/23 @ 14:11 by Mariaelena Greer RN) Chronic left hip pain Hyperlipidemia Irritability Left leg DVT (2018) Osteoarthritis of left hip Other polyuria Polyphagia Physical Therapy Inpatient Evaluation/Re-Eval M1 PT/OT-IP Prior Functional Status Start: 08/31/23 16:43 Freq: NEEDED Status: Active Protocol: Document 08/31/23 15:00 AB (Rec: 08/31/23 16:53 AB [id number]) Medical Review Prior Functional Status Medical History Reviewed Yes Communication able to make needs known Mobility and Gait pt stated that he was independent with all mobilities and ambulation without AD Activities of Daily Living and IADL's per OT note: Pt states has difficulty with LB dressing needs, and pain during IADL needs. Social History Household Members spouse,children Living Arrangements House Number of Floors (Floors) Two Floors Number of Stairs To Enter/Railing? pt stays on main level of the house 1 step to enter Home Environment High Toilet,Walk in Shower Home Equipment Front Wheel Walker,Quad Cane, Straight Cane,Hand Held Shower ,Grab Bars Near Toilet M2 PT-IP Current Condition Start: 08/31/23 16:43 Freq: NEEDED Status: Active Protocol: Document 08/31/23 15:00 AB (Rec: 08/31/23 16:53 AB [id number]) Physical Therapy Current Condition Current Condition Evaluation Date 08/31/23 Treatment Diagnosis s/p L ALEJANDRA anterior approach; difficulty in walking Onset Date 08/31/23 M3 PT-IP Subjective Start: 08/31/23 16:43 Freq: NEEDED Status: Active Protocol: Document 08/31/23 15:00 AB (Rec: 08/31/23 16:53 AB [id number]) Subjective Physical Therapy Visit Type Type Initial Evaluation Visit Start Time 15:00 Visit Stop Time 15:50 Number of METAL FRAMER Visits 50 Physical Therapy Visit Comments Patient Comments agreeable to do PT Therapy Pain Assessment Pain When Pain Assessed At Rest Pain Present Pain Present Pain Reported Location Left Hip Intensity 7 Scale Used Numeric (0 - 10) Pain Management Techniques Apply Cold,Distraction, Modification of Treatment,Re- positioning,Timing of Activity with Medications M4 PT-IP Mobility and Gait Start: 08/31/23 16:43 Freq: NEEDED Status: Active Protocol: Document 08/31/23 15:00 AB (Rec: 08/31/23 16:53 AB [id number]) PT-Bed Mobility Assessment Supine to Sit Supine to Sit Maximum Assistance Sit to Supine Sit to Supine Maximum Assistance PT-Transfer Assessment Sit to and From Stand Sit to and from Stand Maximum Assistance,2 Person Assistance,Use of Upper Extremities Equipment Transfer Assistive Device Gait Belt,Front Wheeled Walker Orthotic/Prosthetic Devices or Brace: No Comments Mobility Comments pt supine in bed and agreeable to do PT. obtained PLOF and home set up from pt. spouse and son arrived. educated pt and family regarding pt's R hip anterior precautions. post-op folder provided and contents reviewed with pt. BP in supine: 96/58. completed supine to sit max A and max cues. c/o dizziness in sitting. BP checked: 108/63 O2 sat: 95% and OR: 58. pt completed sit to stand max A x 2 and max cues. requiring increase time to get to standing position. slight L knee buckling noted and pt cued and PT stabilized L knee. pt took ~ 2 steps side stepping towards HOB using FWW max A x 2 and max cues. pt sat back on EOB. completed sit to supine max A and max cues. positioned pt in bed. call light and table placed within reach. set up caregiver training tomorrow at 9 am. Gait Assessment Comments Gait Comments only able to take side steps towards HOB max A x 2 and max cues PT-Balance Assessment Sitting Balance and Reactions Static Sitting Balance Ability Good Dynamic Sitting Balance Ability Fair Standing Balance and Reactions Static Standing Balance Ability Poor Dynamic Standing Balance Ability Poor Device Used FWW M5 PT-IP Objective Assessments Start: 08/31/23 16:43 Freq: NEEDED Status: Active Protocol: Document 08/31/23 15:00 AB (Rec: 08/31/23 16:53 AB [id number]) Orientation Orientation/Cognition Level of Alertness Alert Orientation Name,Place,Situation Language Function Ability No Deficits Noted Safety Awareness Decreased Safety Awareness Memory Description No Deficits Noted Gross Range of Motion Lower Extremity ROM Assessment Within Functional Limits Strength Lower Extremity Strength Assessment Left Impaired Hip 2+/5 Knee 3+/5 Coordination Assessment Gross Coordination Gross Coordination WNL Muscle Tone Muscle Tone WNL Yes M6 PT-IP Treatment Start: 08/31/23 16:43 Freq: NEEDED Status: Active Protocol: Document 08/31/23 15:00 AB (Rec: 08/31/23 16:53 AB [id number]) Physical Therapy Treatment Education Education Provided Precautions,Weight Bearing Status,Post-Op Packet,Safety M7 PT-IP Assessment and Plan Start: 08/31/23 16:43 Freq: NEEDED Status: Active Protocol: Document 08/31/23 15:00 AB (Rec: 08/31/23 16:53 AB [id number]) PT Summary Assessment and Plan Potential Rehabilitation Potential Fair Status of Condition at Evaluation Evolving Summary Impairments Pain,ROM,Strength,Balance, Coordination,Sensation,Tone, Cognition,Bed Mobility, Transfers,Gait,Activity Tolerance Assessment Summary pt is a 57 y/o M s/p L ALEJANDRA anterior approach POD 0. pt with c/o increase pain on L hip. pt requiring max Ax 2 for sit to stand and unable to ambulate at this time. caregiver training set up for tomorrow at 9 am. will continue to assess progress and for safe d/c plan. Goals Bed Mobility Goal Independent Transfer Goal Independent,Front Wheeled Walker Gait Goal Independent,Front Wheel Walker Gait Distance 200 Other Goals up/down 1 step using FWW SBA Days to Meet Goals 5 Frequency of Treatment Frequency Of Treatment Twice a Day Treatment Plan Physical Therapy Treatment Plan Bed Mobility Training,Transfer Training,Gait Training, Therapeutic Exercise,Balance Retraining,Post Op Education, Discharge Planning,Hot or Cold Pack,Neuromuscular Re-ed, Coordination Retraining,Manual Therapy Precautions Anterior Hip Precautions No Hip Extension,No Hip External Rotation Weight Bearing Status Weight Bearing Status Weight Bear as Tolerated Allowed Weight Bearing Amount (enter % LLE WBAT or #) (%) Recommendations To Nursing Amount of Assist Needed 2 Person Assist Discharge Recommendations PT Discharge Recommendations Home with Assistance, Outpatient PT Transportation Needs at Discharge Private Vehicle,Wheelchair/ Cabulance
--- NOTE | 2023-08-31 15:30 | CM.DANOTE ---
Initial DCP Assessment Visit Note Reviewed EMR for pt's medical status and anticipated d/c needs. Met with pt briefly at bedside, pt found to be alert/oriented, but experiencing acute pain post-op. is at bedside, she will also transport once he's medically cleared for d/c. Plan is f/u with Ortho in 2-weeks, OP PT. Payor: [employer] Attending: Dr. Schwartz Pt is a 57 year-old M placed in OBS bed following his total L-hip arthroplasty surgery today. Focus is on pain management, OT was also working with him in the room at the time of this assessment. No further DCP needs identified for assistance at this time. Discharge Planning/Care Management CM Discharge Assessment Start: 08/31/23 15:29 Freq: Status: Active Protocol: Document 08/31/23 15:29 DPL (Rec: 08/31/23 15:30 DPL [id number]) Discharge Planning Assessment Assigned Food And Beverage Lead MAREN Weaver Advance Directives? Yes Advance Directives on File No History Provided By Patient,Medical Record Expected Length of Stay 1 Has Patient been admitted in last 30 No days? Prior Living Arrangements House Household Members spouse,children Type of transporation used prior to Drives own vehicle admit Independent with ADL's Yes Is patient alert and oriented? Yes Comment N/A Caregiver for Another No Community Services used prior to Physical Therapy admission: DME Already Rented / Owned Bath Bench,Elevated Toilet Seat,FWW / Walker Patient/Family Preference OP PT Therapy Barriers to Discharge No Discharge Plan Home Community Services Physical Therapy Transportation Arrangement Spouse Referrals Initiated None needed Whiteboard Updated in Patient Room with Yes name and ext. # of Food And Beverage Lead Review Status In Process Please Provide Date Initial DC 08/31/23 Assessment Was Performed Pre-Anesthesia Assessment Start: 08/09/23 13:41 Freq: Status: Active Protocol: Document 08/09/23 13:41 CAB (Rec: 08/09/23 14:28 CAB [id number]) Pre-Anesthesia Assessment Patient Information Reviewed Via Phone Assessment Assessment Completed With Patient Diagnostic Results BMP/CMP,CBC Comment Labs @ [facility] 06/26/23, EKG @ PCP office-in surgery folder for dos review Primary Care Provider Gordy Mcknight Seen Specialist in Last 12 Months Yes Specialist Seen Inside Sales Account Manager,Orthopedist Primary Language Finnish Life Advisor Required No Height 185.42 cm Weight 95.254 kg Body Mass Index (BMI) 27.7 Hearing Ability Normal Visual Assist Glasses Dentition Type Teeth, Natural Present Barriers to Learning None Hx Anesthesia Reactions No Hx Family Anesthesia Reaction No Hx Malignant Hyperthermia No Hx Blood Transfusions No Anesthesia Review Requested No Cloth Hand No alcohol intake current alcohol intake frequency a few times a week Smoking Status Never smoker Substance Use Type does not use Pain Present Pain Reported Musculoskeletal Symptoms Abnormal Gait,Difficulty Walking,Joint Pain History of Falling (Recent or History of Yes ) Patient is completely paralyzed or No completely immobile Mental Status Oriented to own ability Is patient on oxygen? No Does patient have LOU/SOB No Hx Sleep Apnea No Currently Taking a Beta Mame No Hx Chest Pain No Hx SOB No Hx Syncope or Dizziness No Anti-Coagulant Therapy No Has a Wire Temperer No Cardiac Testing No Hx Pacemaker/ICD No Pacemaker Rep Required? No Cardiac Clearance Received Not Applicable Diet Type At Home Regular Dysphagia No Gastrointestinal Symptoms Reflux Chronic UTI No Bladder Pattern Frequency Urinary Catheter Present No Hx Urinary Self Catheterization No Diabetes No HgbA1C 5.7 Date 06/26/23 Hx Drug Resistant Organism No Presence of External or Internal Medical No Devices Received a COVID vaccine? Yes Received all doses? No Marital Status Lives With children Current Living Arrangements House Number of Floors (Floors) Two Floors Support System Child/Children,Spouse Does the Patient Have Assistance After Yes Surgery Patient Discharge Plan Description Return Home Comment Pt advised possible same day surgeon Feels Safe in Current Environment Yes Been Physically Hurt or Threatened By a No Person in Current Environment Do you have thoughts of harming yourself None or others? Are you currently considering suicide? No Do you have a plan to hurt yourself or No Plan others? Do You Have Any Spiritual Beliefs That No May Affect Your HC Choices? Do You Have Any Cultural Practices That No May Affect Your HC Choices? Who Can We Speak to About Patient's Care Family, friends Identifying Code for Release of Patient Declines to issue Information Health Care Proxy/Next of Kin Bebe () Health Care Proxy Emergency Contact Name Bebe () Emergency Contact Advance Directives? Yes Advance Directives on File No Requested Patient Bring Advanced Yes Directives DOS Power of Tobacco Grower Yes Power of Tobacco Grower Name Bebe () Power of Tobacco Grower PAC Instructions Assistance for 24 hours post- op,Durable medical equipment, Medications to take/avoid, Nasal antibiotic,No ETOH/ petroleum product on skin DOS, NPO,Post-op transportation,Pre -surgical wash,Sensory aids, Sturdy shoes/comfortable clothes,Do not bring valuables and remove jewelry
[2023-08-31] MEDS: IBUPROFEN 600 MG TABLET PO ×2 (17:11→23:13)
--- NOTE | 2023-08-31 17:28 | PC.NURSE ---
Patient much more comfortable this evening stating pain is tolerable at 5-6/10 to L hip. He reports some patvhes of numbness to outside of L hip and L foot. He does not yet feel the urge to void and stated his last void was approximately 0530 a.m. Patient's bladder scanned and results in 249ml. Encouraged to use urinal, continuous monitoring.
[2023-08-31] MEDS: ONDANSETRON 4 MG/2 ML INJ IV (19:51)
[2023-08-31] MEDS: ASPIRIN EC 81 MG TABLET PO (20:08)
[2023-09-01 00:13] VITALS: BP 105/56; PULSE 57; RESP 18; TEMP 36.3; O2SAT 96
[2023-09-01] MEDS: OXYCODONE IR 5 MG TABLET PO ×3 (00:32→09:00)
[2023-09-01 04:32] VITALS: BP 102/51; PULSE 55; RESP 18; TEMP 35.9; O2SAT 94
[2023-09-01] MEDS: IBUPROFEN 600 MG TABLET PO (05:26)
[2023-09-01] MEDS: ACETAMINOPHEN 325 MG TABLET 650 MG PO (05:26)
[2023-09-01] MEDS: LEVOTHYROXINE 112 MCG TABLET PO (05:27)
[2023-09-01 06:15] LABS: Hematocrit 35.4 % (41-53); Hemoglobin 11.9 g/dL (13.5-17.5)
--- NOTE | 2023-09-01 08:04 | PM.DS.1 ---
History of Present Illness History of Present Illness Date Patient Seen: 09/01/23 Time Patient Seen: 08:05 Chief complaint: Hip pain Narrative: Patient was having severe hip pain late last night but is more mild this morning. Denies fever or chills. No nausea or vomiting. Patient's is home and available to assist him. Discharge Providers Provider Discharge Date: 09/01/23 Primary care physician: Gordy Mcknight MD Consults: 08/31/23 06:29 Consult to Anesthesiology Routine Comment: Consulting Provider: Anesthesiologist Reason for consultation: Regional block for post operative pain control 08/31/23 11:14 Consult to Discharge Planning Routine Comment: Consult to Occupational Therapy Evaluate & Treat Comment: Physician Instructions: Evaluate and treat Consult to Physical Therapy Evaluate & Treat Comment: Physician Instructions: post op ALEJANDRA protocol Discharge provider: Anthony Murphy PA-C Summary Hospital Course Discharge Diagnosis: Left hip osteoarthritis Hospital Course: Left total hip arthroplasty (15649) Same procedure as scheduled: Yes Surgeon: Hunter Schwartz Software Program Manager: Lisbeth High Anesthesia Type: General, Spinal, Peripheral nerve block and Local Operative Notes Estimated Blood Loss (mL): 250 Procedure in detail: Implants: Depuy Total Hip Arthroplasty: Depuy Dora Gription size 60 cup? Depuy Actis femoral stem size 11 standard offset? 36 mm +1.5 ceramic femoral head? Patient admitted to the hospital for left total hip arthroplasty. Patient consented to the same. Patient underwent left total hip arthroplasty, anterior approach August 31, 2023. Patient back in his room recovering well as in stable condition. Patient will mobilize with physical therapy. Multimodal pain management. Discharge home today after physical therapy if safe for home environment. Status at Discharge Cognitive/behavioral status at discharge: at baseline, oriented Functional status at discharge: uses cane/walker Overall status at discharge: patient is progressing back to baseline Exam Vital Signs (past 8 hours): - 09/01/23 00:13 09/01/23 04:32 Temperature 97.3 F L 96.7 F L Pulse Rate 57 L 55 L Respiratory Rate 18 18 Blood Pressure 105/56 L 102/51 L Pulse Oximetry 96 94 Oxygen Flow Rate 0 0 Oxygen Delivery Method Room Air Oxygen Flow Rate 0 Narrative Exam Narrative: 49-year-old male resting comfortably in bed in no apparent distress. Patient is sitting up having breakfast. Dressing is clean, dry and intact. Motor functions intact bilateral lower extremities. Sensation grossly intact to light touch bilateral lower extremities. Const General: cooperative and comfortable Nutritional Appearance: average body habitus Orientation: alert Resp Effort & Inspection: normal respiratory effort and able to speak in complete sentences Objective Labs 09/01/23 06:08 Labs: Laboratory Results - last 24 hr 08/31/23 09/01/23 07:30 06:08 Hgb 11.9 L Hct 35.4 L Blood Type B Positive Antibody Screen Negative Crossmatch See Detail PFSH Medical History Irritability Hyperlipidemia Other polyuria Polyphagia Chronic left hip pain Osteoarthritis of left hip Left leg DVT (2018) Surgical History Hx of colonoscopy Hx of melanoma excision (2018) History of tonsillectomy Status post laparoscopic cholecystectomy (12/26/12) Family History Sister Age: 66 Bipolar 1 disorder Social History household members: spouse and children Smoking Status: Never smoker alcohol intake: current Discharge Assessment & Plan Assessment and Plan Assessment: Patient progressing as expected status post left total hip arthroplasty Plan of Treatment: Anterior hip precautions Weightbearing as tolerated Aspirin 81 mg b.i.d. Multimodal pain management Discharged home today after physical therapy if safe for home environment. Discharge Plan Discharge Plan Patient Disposition: Home Provider Discharge Comment: Detailed postoperative instructions available at: [email or web address] Discharge orders & Medications Discharge Orders: Discharge (Order); Ordered 09/01/23 Ordered By: Anthony Murphy Prescriptions: New acetaminophen 325 mg Tablet 650 mg PO Q6H Qty: 60 0RF polyethylene glycol 3350 17 gram Powder In Packet 17 gm PO DAILY PRN (Reason: Constipation) Qty: 10 0RF aspirin 81 mg Tablet,Delayed Release (Dr/Ec) 81 mg PO BID Qty: 60 0RF tramadol 50 mg Tablet 50 mg PO QID PRN (Reason: Pain, Moderate (4-6)) Qty: 20 0RF ibuprofen 600 mg Tablet 600 mg PO Q6H Qty: 60 0RF oxycodone 5 mg Tablet 5 mg PO Q3H PRN (Reason: Pain, Severe (7-10)) Qty: 30 0RF omeprazole 20 mg capsule,delayed release(DR/EC) 20 mg PO DAILY Qty: 30 0RF Continued levothyroxine 112 mcg tablet 112 mcg PO DAILY Qty: 90 2RF pravastatin 20 mg tablet 20 mg PO DAILY Qty: 30 2RF Rx Instructions: 1/2 tab daily for 3 days then increase to 1 tab daily if tolerated and maintain on such with laboratory recheck in 3 months. Greater quantity refills subsequently possible. Follow up/Referrals: Gordy Mcknight MD [Primary Care Provider] - Hunter Schwartz MD [Physician] - 09/14/23 4:00 pm (Follow up w/ Cody Jay PA-C, at [facility] in [place].) Diet/Activity/Treatments Diet: Diet as Tolerated Cold/Heat Therapy: Ice to the joint as needed for pain control. Place a towel or other barrier between you and the ice. Follow your doctors instructions for length of use, rest between use. Skin/Wound/Dressing Care Report to your healthcare provider any signs of infection, such as:: chills, fever, night sweats, unusual drainage and unusual redness Dressing: Keep dressing intact until 2 week post-op appointment. Keep dressing clean and dry, if dressing becomes saturated or dirty okay to remove and replace with clean and dry gauze. No soaking the incision site in pools or tubs. No topical lotions, ointments or creams to the incision site. Visit Report/Discharge Packet Instructions: DI for Hip Replacement, DI for Prescription Opioid Use Stand Alone Forms: Patient Portal/API, Surgery Discharge Print Language: Vietnamese Discharge Data Primary Care Provider: Gordy Mcknight Attending Provider: Hunter Schwartz Quality VTE Deep Vein Thrombosis/Pulmonary Embolism Present on Admission: No
[2023-09-01 08:22] VITALS: BP 98/61; PULSE 59; RESP 20; TEMP 36.3; O2SAT 97
--- NOTE | 2023-09-01 08:52 | PT.IPTN ---
Current Diagnoses Unilateral primary osteoarthritis, left hip (08/31/23) Surgery Performed Operation Date: 08/31/23 07:45 Actual Procedures p Total Hip Arthroplasty/Anterior Approach(Left) - Hunter Schwartz MD Physical Therapy Treatment Note M2 PT-IP Current Condition Start: 08/31/23 16:43 Freq: NEEDED Status: Active Protocol: Document 08/31/23 15:00 AB (Rec: 08/31/23 16:53 AB [id number]) Physical Therapy Current Condition Current Condition Evaluation Date 08/31/23 Treatment Diagnosis s/p L ALEJANDRA anterior approach; difficulty in walking Onset Date 08/31/23 M3 PT-IP Subjective Start: 08/31/23 16:43 Freq: NEEDED Status: Active Protocol: Document 09/01/23 09:23 TS (Rec: 09/01/23 09:45 TS [id number]) Subjective Physical Therapy Visit Type Type Treatment Note Visit Start Time 08:52 Visit Stop Time 09:22 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 Therapy Pain Assessment Pain When Pain Assessed At Rest Pain Present Pain Present Pain Reported M4 PT-IP Mobility and Gait Start: 08/31/23 16:43 Freq: NEEDED Status: Active Protocol: Document 09/01/23 09:23 TS (Rec: 09/01/23 09:45 TS [id number]) PT-Bed Mobility Assessment Supine to Sit Supine to Sit Standby Assistance Sit to Supine Sit to Supine Standby Assistance Scooting Scooting to Edge of Bed Standby Assistance Scooting Up and Down in Bed Standby Assistance PT-Transfer Assessment Sit to and From Stand Sit to and from Stand Minimal Assistance,1 Person Assistance,Use of Upper Extremities Equipment Transfer Assistive Device Gait Belt,Front Wheeled Walker Orthotic/Prosthetic Devices or Brace: No Comments Mobility Comments Pt recalled 2/2 hip precautions prior to mobility. Supine to sit SBA with BUE support, pt is slow with movement due to pain. Spouse was instructed in and performed donning of gait belt . STS with FWW Peterson from spouse, pt was provided cues for pushing off from bed with BUE. He ambulated in room SBA with FWW ~50', pt uses heavy UE support and with decreased wbering on L side. Pt reported some lightheadedness and sat EOB. BP in sitting 122/61. Pt agreed to trial stairs. He performed steps x2 with FWW and CGA from spouse. Pt was provided cues for proper step sequencing. Pt ambulated back to bed, sit to supine SBA, pt provided cues for use of gait belt to assist LLE into bed. Pt was left in bed, all needs met, spouse in room, RN notified. Gait Assessment Gait Gait Assistance Required: Standby Assistance Distance (Feet) 50 Able to Maintain Weight Bearing Status Yes During Gait Assistive Devices Assistive Device Gait Belt,Front Wheeled Walker Orthotic/Prosthetic Devices or Brace: No Gait Deviations General Gait Pattern Antalgic,Decreased Stride Length,Decreased Feet Clearance,Step-to Gait Factors Limiting Gait Function Factors Limiting Gait Function Decreased Activity Tolerance, Decreased Strength,Difficulty Following Directions,Pain,Poor Balance Comments Gait Comments See mobility comments Stair Climbing Assessment Evaluation Level of Assist On Stairs Minimal Assistance,1 Person Assistance Devices Stair Climbing Assistive Devices Front Wheel Walker Technique/Endurance Stair Climbing Direction Ascend and Descend Stair Climbing Technique Step to Step Number of Steps Climbed 2 Comments Stair Climbing Comments See mobility comments PT-Balance Assessment Sitting Balance and Reactions Static Sitting Balance Ability Good Dynamic Sitting Balance Ability Fair Standing Balance and Reactions Static Standing Balance Ability Good Dynamic Standing Balance Ability Fair M5 PT-IP Objective Assessments Start: 08/31/23 16:43 Freq: NEEDED Status: Active Protocol: Document 08/31/23 15:00 AB (Rec: 08/31/23 16:53 AB [id number]) Orientation Orientation/Cognition Level of Alertness Alert Orientation Name,Place,Situation Language Function Ability No Deficits Noted Safety Awareness Decreased Safety Awareness Memory Description No Deficits Noted Gross Range of Motion Lower Extremity ROM Assessment Within Functional Limits Strength Lower Extremity Strength Assessment Left Impaired Hip 2+/5 Knee 3+/5 Coordination Assessment Gross Coordination Gross Coordination WNL Muscle Tone Muscle Tone WNL Yes M6 PT-IP Treatment Start: 08/31/23 16:43 Freq: NEEDED Status: Active Protocol: Document 09/01/23 09:23 TS (Rec: 09/01/23 09:45 TS [id number]) Physical Therapy Treatment Education Education Provided Precautions,Weight Bearing Status,Post-Op Packet,Safety M7 PT-IP Assessment and Plan Start: 08/31/23 16:43 Freq: NEEDED Status: Active Protocol: Document 09/01/23 09:23 TS (Rec: 09/01/23 09:45 TS [id number]) PT Summary Assessment and Plan Potential Rehabilitation Potential Good Summary Impairments Pain,ROM,Strength,Balance, Coordination,Sensation,Tone, Cognition,Bed Mobility, Transfers,Gait,Activity Tolerance Progress Towards Goals Progressing Toward Goals Assessment Summary Ovi is making some progress with his mobility this session . He progressed bed mobility to SBA and was instructed in the use of gait belt to assist LLE. He performed sit to stand x2 SBA with use of FWW. He progressed his gait to ~50' with heavy use of UE's and decreased wbering on LLE. He progressed to stairs x2 with use of FWW and Peterson from spouse. Spouse was instructed in and performed donning of gait belt, STS seqeuncing, gait training and stair training. PT is recommending pt to return home with assist and outpatient PT. Goals Bed Mobility Goal Independent Transfer Goal Independent,Front Wheeled Walker Gait Goal Independent,Front Wheel Walker Gait Distance 200 Other Goals up/down 1 step using FWW SBA Days to Meet Goals 5 Frequency of Treatment Frequency Of Treatment Twice a Day Treatment Plan Physical Therapy Treatment Plan Bed Mobility Training,Transfer Training,Gait Training, Therapeutic Exercise,Balance Retraining,Post Op Education, Discharge Planning,Hot or Cold Pack,Neuromuscular Re-ed, Coordination Retraining,Manual Therapy Precautions Anterior Hip Precautions No Hip Extension,No Hip External Rotation Weight Bearing Status Weight Bearing Status Weight Bear as Tolerated Allowed Weight Bearing Amount (enter % LLE WBAT or #) (%) Recommendations To Nursing Amount of Assist Needed 1 Person Assist Discharge Recommendations PT Discharge Recommendations Home with Assistance, Outpatient PT Transportation Needs at Discharge Private Vehicle,Wheelchair/ Cabulance
[2023-09-01] MEDS: DOCUSATE 100 MG CAPSULE PO (08:58)
[2023-09-01] MEDS: ASPIRIN EC 81 MG TABLET PO (08:58)
[2023-09-01] MEDS: SODIUM CHLORIDE 0.9% FLUSH 10 ML IV (08:59)
--- NOTE | 2023-09-01 09:07 | CM.DPC ---
DCP Cont. Reviewed EMR and team rounds for status updates. Met with pt at bedside to discuss d/c plan for today. He was found to be alert/oriented/appearing comfortable and expressing readiness to return home. His will arrive this morning and transport him home after he's worked with therapies. No further home d/c needs identified at this time.
[2023-09-01] MEDS: ONDANSETRON 4 MG ODT PO (09:24)
--- NOTE | 2023-09-01 09:30 | PC.NURSE ---
Addendum entered by Lissa Foote R.N. 09/01/23 10:34: all questions were answered. dc instructions provided Original Note: c/o nausea after PT. gave zofran.
== END 2023-09-01 10:30 | disposition home or self-care (01) ==
LOC: OR 06:10 → AC 08:11
PROVIDERS: Student in an Organized Health Care Education/Training Program; Family Provider Student in an Organized Health Care Education/Training Program; PCP Family Medicine; Referring Provider Orthopaedic Surgery Adult Reconstructive Orthopaedic Surgery; Visit Provider Orthopaedic Surgery Adult Reconstructive Orthopaedic Surgery
PROC: (CPT 27130; principal; 2023-08-31 07:45)
DX: M16.12 Unilateral primary osteoarthritis, left hip (principal)
CPT/HCPCS: 27130; 36415; 73502; 76000; 85014; 85018; 85025; 86850; 86900; 86901; 97116; 97163; 97165; 97530; C1776; J0690; J1100; J1885; J2250; J2405; J2704; J3010

== ENCOUNTER 2023-09-04 18:31 | Emergency (ER) | payer OTHER, MEDICAID, SELFPAY ==
[2023-08-31 16:00] VITALS: BMI 27.7
[2023-09-04] VITALS (7 sets, daily range): BP systolic 116–149; BP diastolic 70–82; PULSE 59–66; RESP 19–20; TEMP 37.1; O2SAT 92–98; BMI 28.2
--- NOTE | 2023-09-04 18:59 | DI.US.S_ITS ---
PROCEDURE: US PERIPH VENOUS LOW EXTREM LT INDICATIONS: LLE EDEMA 4 DAYS POST HIP REPLACEMENT TECHNIQUE: Real-time imaging, as well as color and pulse Doppler interrogation, were performed of the lower extremity deep veins from the inguinal ligament to the popliteal fossa, with documentation of the visualized calf veins. COMPARISON: None. FINDINGS: The common femoral, femoral, popliteal, and the visualized calf veins are normally compressible, and free of intraluminal thrombus. Color and pulse Doppler demonstrate normal phasic intraluminal flow. There is normal augmentation response to distal compression maneuver. IMPRESSION: No findings of lower extremity deep venous thrombosis. Dictated by: Chacha Espinal M.D. on 09/04/2023 at 23:01 Approved by: Chacha Espinal M.D. on 09/04/2023 at 23:01
[2023-09-04] MEDS: ACETAMINOPHEN 325 MG TABLET 650 MG PO (20:52)
[2023-09-04] MEDS: OXYCODONE IR 5 MG TABLET PO (20:52)
--- NOTE | 2023-09-04 21:37 | ED.LOWEXIN ---
HPI - Extremity Injury (Lower) General Chief Complaint: Extremity Injury, Lower Stated Complaint: Rule out DVT Time Seen by Provider: 09/04/23 21:17 History of Present Illness HPI Narrative: 57-year-old male with recent total left hip arthroplasty on 08/31/2023 presents by private vehicle for left lower extremity swelling. Patient has history of provoked DVT in the past, is currently only on baby aspirin following his surgery. Patient states that he has had a difficult recovery due to pain but is mobilizing and following all postoperative instructions. He called his doctor stating he was concerned due to pain swelling in his thigh and leg, and based on his history he was referred to the emergency department to rule out a DVT. Related Data Previous Rx's Medication Instructions Recorded levothyroxine 112 mcg tablet 112 mcg PO DAILY #90 tabs 06/26/23 pravastatin 20 mg tablet 20 mg PO DAILY Elevated 06/26/23 cholesterol #30 tabs acetaminophen 325 mg tablet 650 mg (2 x 325 mg) PO Q6H #60 tabs 09/01/23 aspirin 81 mg tablet,delayed 81 mg PO BID #60 tabs 09/01/23 release ibuprofen 600 mg tablet 600 mg PO Q6H #60 tabs 09/01/23 omeprazole 20 mg capsule,delayed 20 mg PO DAILY #30 caps 09/01/23 release oxycodone 5 mg tablet 5 mg PO Q3H PRN Pain, Severe 09/01/23 (7-10) #30 tabs polyethylene glycol 3350 17 gram 17 gm PO DAILY PRN Constipation 09/01/23 oral powder packet #10 ea tramadol 50 mg tablet 50 mg PO QID PRN Pain, Moderate 09/01/23 (4-6) #20 tabs Allergies Allergy/AdvReac Type Severity Reaction Status Date / Time No Known Drug Allergies Allergy Verified 09/04/23 18:48 Review of Systems Review of Systems Narrative: Negative except as noted above Patient History Medical History Irritability Hyperlipidemia Other polyuria Polyphagia Chronic left hip pain Osteoarthritis of left hip Left leg DVT (2017) Surgical History Hx of colonoscopy Hx of melanoma excision (2017) History of tonsillectomy Status post laparoscopic cholecystectomy (12/26/12) Family History Sister Age: 66 Bipolar 1 disorder Social History household members: spouse and children Smoking Status: Never smoker alcohol intake: current Smoking Status: Never smoker alcohol intake frequency: a few times a week Substance Use Type: does not use Exam Initial Vital Signs Initial Vital Signs: Vital Signs Temperature 98.8 F 09/04/23 18:40 Pulse Rate 65 09/04/23 18:40 Respiratory Rate 20 09/04/23 18:40 Blood Pressure 129/82 09/04/23 18:40 Pulse Oximetry 97 09/04/23 18:40 Oxygen Delivery Method Room Air 09/04/23 18:40 Const: Awake, alert, no acute distress, nontoxic appearing Cardiac: regular rate, regular rhythm RESP: unlabored, clear bilaterally, no wheezing GI: Atraumatic, soft, nontender, nondistended, no rebound, no guarding MSK: Left hip arthroplasty wound with clean dry dressing, swelling left lower extremity compared to right lower extremity, slight warmth to touch Skin: Warm, Dry, intact, some warmth from L hip to L knee, no erythema, no fluctuance Neuro: AO x3, CN II-XII grossly intact, moves all extremities Psych: affect normal, mood normal, not suicidal, not homicidal Course Orders Ordered: ED Orders 09/04/23 18:59 periph venous low extrem lt Stat 09/04/23 22:05 CBC Auto Diff [Complete Blood Count AUTO DIFF] Stat CMP [Comprehensive Metabolic Panel] Stat Procalcitonin Stat Discontinued Medications Acetaminophen (Acetaminophen 325 Mg Tablet) 650 mg PO NOW ONE Stop: 09/04/23 20:45 Last Admin: 09/04/23 20:52 Dose: 650 mg Documented By: TAYLOR Oxycodone HCl (Oxycodone 5 Mg/5 Ml Oral Solution) 5 mg PO DIRECTED ONE Stop: 09/04/23 20:46 Oxycodone HCl (Oxycodone Ir 5 Mg Tablet) 5 mg PO NOW ONE Stop: 09/04/23 20:47 Last Admin: 09/04/23 20:52 Dose: 5 mg Documented By: JAUN Vital Signs Vital signs: Vital Signs - 8 hr 09/04/23 18:40 09/04/23 21:23 09/04/23 21:24 Temperature 98.8 F Pulse Rate 65 65 66 Respiratory Rate 20 19 Blood Pressure 129/82 149/70 H Pulse Oximetry 97 98 98 Oxygen Delivery Method Room Air Room Air 09/04/23 21:24 09/04/23 21:30 09/04/23 21:30 Temperature Pulse Rate 59 L Respiratory Rate 20 Blood Pressure 149/81 H 131/78 Pulse Oximetry 97 Oxygen Delivery Method Room Air 09/04/23 22:00 09/04/23 22:00 09/04/23 22:30 Temperature Pulse Rate 65 64 Respiratory Rate 19 Blood Pressure 147/77 H Pulse Oximetry 93 92 Oxygen Delivery Method Room Air 09/04/23 22:30 09/04/23 23:00 09/04/23 23:00 Temperature Pulse Rate 64 Respiratory Rate 19 Blood Pressure 117/74 116/74 Pulse Oximetry 93 Oxygen Delivery Method Room Air MDM - Extremity Injury (Lower) Differential Diagnosis Differential diagnosis: Likely ankle sprain and strain, acute internal derangement of knee and fracture of femur Lab Data 09/04/23 22:05 09/04/23 22:05 Labs: Lab Results 09/04/23 Range/Units 22:05 WBC 6.2 (4.5-11.0) X10^3/uL RBC 3.80 L (4.5-5.9) X10^6/uL Hgb 11.6 L (13.5-17.5) g/dL Hct 34.2 L (41-53) % MCV 90.1 (80-100) fL MCH 30.4 (26-34) PG MCHC 33.8 (30-36) % RDW 13.9 (11.6-14.8) % Plt Count 212 (150-400) X10^3/uL Neut % (Auto) 72.3 (50-75) % Lymph % (Auto) 17.6 L (25-40) % Schleicher % (Auto) 7.3 (3-14) % Eos % (Auto) 2.3 (2-4) % Baso % (Auto) 0.5 (0-2) % Neut # (Auto) 4500 (0445-9487) /uL Lymph # (Auto) 1100 (5708-9427) /uL Schleicher # (Auto) 400 (0-900) /uL Eos # (Auto) 100 (0-450) /uL Baso # (Auto) 0 (0-100) /uL Sodium 140 (137-145) mmol/L Potassium 3.9 (3.4-5.1) mmol/L Chloride 107 (98-107) mmol/L Carbon Dioxide 26 (22-32) mmol/L BUN 23 H (9-20) mg/dL Creatinine 0.77 (0.66-1.25) mg/dL Estimated GFR > 60 (>60) mL/min BUN/Creatinine Ratio 29.9 H (6-22) Glucose 95 (70-100) mg/dL Calcium 9.2 (8.4-10.2) mg/dL Total Bilirubin 0.6 (0.2-1.3) mg/dL AST 62 H (17-59) IU/L ALT 79 H (<50) IU/L Alkaline Phosphatase 92 (38-126) U/L Total Protein 6.6 (6.3-8.2) g/dL Albumin 3.6 (3.5-5.0) g/dL Globulin 3.0 (1.7-4.1) g/dL Albumin/Globulin Ratio 1.2 (1.0-2.8) Procalcitonin 0.07 (<0.5) ng/mL MDM Narrative Medical decision making narrative: Well-appearing patient with leg swelling and pain postoperatively, concern is for DVT versus infection. Patient's wound is clean, dry, intact, he is neurovascularly intact. He does have swelling and some warmth over his left outer thigh down to his knee, operative report states that patient was noted to be very muscular and hardware insertion was difficult secondary to this. Patient is still very close postoperatively, swelling and mild warmth felt on palpation thought secondary to bruising, however we will order labs and ultrasound imaging. Ultrasound negative for DVT. Laboratory work shows no leukocytosis, hemoglobin stable compared to 09/01/2023, procalcitonin negative. Unlikely to be bacterial cellulitis at this time. Patient and advised of lab and imaging findings, recommended close follow up with patient's surgeon and continued adherence to postoperative guidelines for continued care. ED return precautions discussed at bedside. Patient expressed understanding of the plan and is in agreement at this time. All questions answered at the time of discharge. Discharge Plan Departure Patient Disposition: Home Clinical Impression: Leg swelling Instructions: DI for Peripheral Edema-Unilateral Prescriptions: No Action levothyroxine 112 mcg tablet 112 mcg PO DAILY Qty: 90 2RF pravastatin 20 mg tablet 20 mg PO DAILY Qty: 30 2RF Rx Instructions: 1/2 tab daily for 3 days then increase to 1 tab daily if tolerated and maintain on such with laboratory recheck in 3 months. Greater quantity refills subsequently possible. acetaminophen 325 mg Tablet 650 mg PO Q6H Qty: 60 0RF polyethylene glycol 3350 17 gram Powder In Packet 17 gm PO DAILY PRN (Reason: Constipation) Qty: 10 0RF aspirin 81 mg Tablet,Delayed Release (Dr/Ec) 81 mg PO BID Qty: 60 0RF tramadol 50 mg Tablet 50 mg PO QID PRN (Reason: Pain, Moderate (4-6)) Qty: 20 0RF ibuprofen 600 mg Tablet 600 mg PO Q6H Qty: 60 0RF oxycodone 5 mg Tablet 5 mg PO Q3H PRN (Reason: Pain, Severe (7-10)) Qty: 30 0RF omeprazole 20 mg capsule,delayed release(DR/EC) 20 mg PO DAILY Qty: 30 0RF Referrals: Gordy Mcknight MD [Primary Care Provider] - Stand Alone Forms: Patient Portal/API
[2023-09-04 22:22] LABS: Add Manual Diff / Slide Review NO; Basophils Absolute Auto 0 /uL (0-100); Basophils Percent Auto 0.5 % (0-2); Eosinophils Absolute Auto 100 /uL (0-450); Eosinophils Percent Auto 2.3 % (2-4); Hematocrit 34.2 % (41-53); Hemoglobin 11.6 g/dL (13.5-17.5); Lymphocytes Absolute Auto 1100 /uL (1100-4500); Lymphocytes Percent Auto 17.6 % (25-40); Mean Corpuscular HGB Conc 33.8 % (30-36); Mean Corpuscular Hemoglobin 30.4 PG (26-34); Mean Corpuscular Volume 90.1 fL (80-100); Monocytes Absolute Auto 400 /uL (0-900); Monocytes Percent Auto 7.3 % (3-14); Neutrophils Absolute Auto 4500 /uL (1500-7000); Neutrophils Percent Auto 72.3 % (50-75); Platelet Count 212 X10^3/uL (150-400); Red Cell Distribution Width 13.9 % (11.6-14.8); White Blood Cell Count 6.2 X10^3/uL (4.5-11.0)
[2023-09-04 22:42] LABS: Alanine Aminotransferase 79 IU/L (<50); Albumin 3.6 g/dL (3.5-5.0); Albumin Globulin Ratio 1.2 (1.0-2.8); Alkaline Phosphatase 92 U/L (38-126); Aspartate Aminotransferase 62 IU/L (17-59); BUN Creatinine Ratio 29.9 (6-22); Bilirubin Total 0.6 mg/dL (0.2-1.3); Blood Urea Nitrogen 23 mg/dL (9-20); Calcium 9.2 mg/dL (8.4-10.2); Carbon Dioxide 26 mmol/L (22-32); Chloride 107 mmol/L (98-107); Estimated Glomerular Filt Rate > 60 mL/min (>60); Glucose 95 mg/dL (70-100); HEMOLYSIS < 15 (0-50); Potassium 3.9 mmol/L (3.4-5.1); Sodium 140 mmol/L (137-145); Total Protein 6.6 g/dL (6.3-8.2)
[2023-09-04 22:59] LABS: Procalcitonin 0.07 ng/mL (<0.5)
== END 2023-09-04 23:10 | disposition home or self-care (01) ==
PROVIDERS: Emergency Provider Emergency Medicine; Family Provider Student in an Organized Health Care Education/Training Program; PCP Family Medicine
DX: M79.89 Other specified soft tissue disorders (principal)
CPT/HCPCS: 36415; 80053; 84145; 85025; 93971; 99284